=== PATIENT | female | born 1960 | race Caucasian/White ===

== ENCOUNTER 2016-07-19 10:16 | Emergency (ER) | payer MEDICARE, BC ==
[2016-07-19] MEDS ORDERED: IPRATROPIUM-ALBUTEROL 3 ML NEB INHALATION STA (11:14)
--- NOTE | 2016-07-19 11:17 | ED ---
URI HPI - General Chief Complaint: Upper Respiratory Infection Stated Complaint: Cold/fever/congestion Time Seen by Provider: 07/19/16 10:40 Source: patient, RN notes reviewed Mode of arrival: ambulatory Limitations: no limitations - History of Present Illness Initial Comments: Patient is a 56-year-old female presents to the emergency room for evaluation of fever cough and congestion. Patient states symptoms began around of last week. Patient states when taking epjr-dus-wktmpnx remedies with little relief of symptoms. Patient denies history of asthma. Patient denies smoking. Patient does admit that her smokes and he is housebound. Patient states that she has a productive cough. Patient states when she starts coughing she can't stop and feels short of breath. Patient denies any current shortness of breath or chest pain. Patient denies throat pain or ear pain. Patient states she received her influenza vaccine this year. - Related Data Home Medications Medication Instructions Recorded Confirmed Eszopiclone [Lunesta] 3 mg PO HS PRN 09/18/13 07/19/16 Fluticasone Propionate [Flonase] 1 - 2 spray EA NOSTRIL DAILY 09/18/13 07/19/16 Levothyroxine Sodium [Synthroid] 125 mcg PO DAILY 09/18/13 07/19/16 Multivitamin [Men's Multi-Vitamin] 1 tab PO DAILY 09/18/13 07/19/16 Pregabalin [Lyrica] 400 mg PO HS 09/18/13 07/19/16 Venlafaxine HCl ER [Effexor Xr] 150 mg PO HS 09/18/13 07/19/16 diphenhydrAMINE HCL [Benadryl] 25 mg PO HS 09/18/13 07/19/16 ALPRAZolam [Xanax] 0.25 mg PO HS 07/19/16 07/19/16 Dicyclomine [Bentyl] 10 mg PO TID PRN 07/19/16 07/19/16 HYDROcodone/IBUPROFEN 7.5-200 1 tab PO QID PRN 07/19/16 07/19/16 [Vicoprofen 7.5-200 mg] Loratadine [Claritin] 10 mg PO DAILY 07/19/16 07/19/16 Simvastatin [Zocor] 20 mg PO DAILY 07/19/16 07/19/16 Previous Rx's Medication Instructions Recorded Azithromycin [Zithromax Z-pack] 250 mg PO DIRECTED #6 tab 07/19/16 Allergies Allergy/AdvReac Type Severity Reaction Status Date / Time sulfamethoxazole Allergy Swelling Verified 07/19/16 10:59 [From Bactrim] trimethoprim [From Bactrim] Allergy Swelling Verified 07/19/16 10:59 Review of Systems ROS Statement: Those systems with pertinent positive or pertinent negative responses have been documented in the HPI. ROS Other: All systems not noted in ROS Statement are negative. Past Medical History Past Medical History: Fibromyalgia, Osteoarthritis (OA) Additional Past Medical History / Comment(s): hypoglycemia History of Any Multi-Drug Resistant Organisms: None Reported Past Surgical History: Section, Tonsillectomy Additional Past Surgical History / Comment(s): sinus surgery Past Anesthesia/Blood Transfusion Reactions: No Reported Reaction Past Psychological History: No Psychological Hx Reported Smoking Status: Never smoker Past Alcohol Use History: None Reported Past Drug Use History: None Reported General Exam - General Exam Comments Initial Comments: Sitting in exam room, no acute distress. Limitations: no limitations General appearance: alert, in no apparent distress Head exam: Present: atraumatic, normocephalic, normal inspection Eye exam: Present: normal appearance ENT exam: Present: normal exam, normal oropharynx, mucous membranes moist, TM's normal bilaterally, normal external ear exam Neck exam: Present: normal inspection, full ROM. Absent: tenderness, lymphadenopathy Respiratory exam: Present: wheezes (Slight wheezing). Absent: respiratory distress Cardiovascular Exam: Present: regular rate, normal rhythm, normal heart sounds Extremities exam: Present: normal inspection Back exam: Present: normal inspection Neurological exam: Present: alert, oriented X3, CN II-XII intact, normal gait Psychiatric exam: Present: normal affect, normal mood Skin exam: Present: warm, dry, intact, normal color. Absent: rash Course Vital Signs 07/19/16 07/19/16 07/19/16 10:26 11:48 12:08 Temperature 98.4 F Pulse Rate 99 100 104 H Respiratory 20 Rate Blood Pressure 130/60 O2 Sat by Pulse 96 Oximetry 07/19/16 12:29 Temperature 99.2 F Pulse Rate 90 Respiratory 18 Rate Blood Pressure 156/70 O2 Sat by Pulse 99 Oximetry Medical Decision Making - Medical Decision Making Patient is a 56-year-old female since emergency room for evaluation of cough and congestion. Lab work shows no significant findings. Patient is influenza B positive. Chest x-ray shows evidence for bronchitis. Patient is past the timeframe to take Tamiflu. Will place patient on azithromycin for bronchitis. Results discussed with patient. Patient states she understands everything that was discussed with her. Advised patient to follow-up with her primary care provider. Return parameters discussed. Case discussed with Dr. Irving. - Lab Data Result diagrams: 07/19/16 11:30 07/19/16 11:30 Lab Results 07/19/16 07/19/16 07/19/16 Range/Units 11:14 11:30 11:30 WBC 4.0 (3.8-10.6) k/uL RBC 5.01 (3.80-5.40) m/uL Hgb 14.9 (11.4-16.0) gm/dL Hct 45.7 (34.0-46.0) % MCV 91.3 (80.0-100.0) fL MCH 29.8 (25.0-35.0) pg MCHC 32.6 (31.0-37.0) g/dL RDW 12.7 (11.5-15.5) % Plt Count 192 (150-450) k/uL Neutrophils % 62 % Lymphocytes % 23 % Monocytes % 7 % Eosinophils % 4 % Basophils % 1 % Neutrophils # 2.5 (1.3-7.7) k/uL Lymphocytes # 0.9 L (1.0-4.8) k/uL Monocytes # 0.3 (0-1.0) k/uL Eosinophils # 0.2 (0-0.7) k/uL Basophils # 0.0 (0-0.2) k/uL Sodium 142 (137-145) mmol/L Potassium 4.4 (3.5-5.1) mmol/L Chloride 109 H (98-107) mmol/L Carbon Dioxide 20 L (22-30) mmol/L Anion Gap 13 mmol/L BUN 15 (7-17) mg/dL Creatinine 0.70 (0.52-1.04) mg/dL Est GFR (MDRD) Af Amer >60 (>60 ml/min/1.73 sqM) Est GFR (MDRD) Non-Af >60 (>60 ml/min/1.73 sqM) Glucose 175 H (74-99) mg/dL Calcium 8.9 (8.4-10.2) mg/dL Total Bilirubin 0.5 (0.2-1.3) mg/dL AST 45 H (14-36) U/L ALT 56 H (9-52) U/L Alkaline Phosphatase 67 (38-126) U/L Total Protein 7.0 (6.3-8.2) g/dL Albumin 4.0 (3.5-5.0) g/dL Influenza Type A RNA Not Detected (Not Detectd) Influenza Type B (PCR) Detected H (Not Detectd) - Radiology Data Radiology results: report reviewed, image reviewed Disposition Clinical Impression: Influenza B, Bronchitis Disposition: HOME SELF-CARE Condition: Good Instructions: Influenza (ED) Additional Instructions: Alternate Tylenol and Motrin as needed for fever/discomfort. Drink plenty fluids. Please follow up with primary care provider in 1-2 days for reevaluation. If any new symptom arises or symptoms worsen, return to ER as soon as possible. Prescriptions: Azithromycin [Zithromax Z-pack] 250 mg PO DIRECTED #6 tab Referrals: Chandrakant Miller MD [Primary Care Provider] - 1-2 days Time of Disposition: 12:28
--- NOTE | 2016-07-19 11:36 | XR ---
EXAMINATION TYPE: XR chest 2V DATE OF EXAM: 07/19/2016 11:31 AM HISTORY: cough. REFERENCE: Previous study dated 06/15/2011. FINDINGS: There are diffuse increased markings. Heart size is within normal limits. Pleural spaces ar e clear. IMPRESSION: DIFFUSE INCREASED MARKINGS MAY REFLECT BRONCHITIS.
[2016-07-19 11:53] LABS: Basophils % (A) 1 %; CH 30.5; CHCM 33.6; Eosinophils # (A) 0.2 k/uL (0-0.7); Eosinophils % (A) 4 %; HCT 45.7 % (34.0-46.0); HDW 2.51; HGB 14.9 gm/dL (11.4-16.0); Luc # (Auto) 0.17; Luc % (Auto) 4; Lymphocytes # (A) 0.9 k/uL (1.0-4.8); Lymphocytes % (A) 23 %; MCH 29.8 pg (25.0-35.0); MCHC 32.6 g/dL (31.0-37.0); MCV 91.3 fL (80.0-100.0); Mean Platelet Volume 7.3; Monocytes # (A) 0.3 k/uL (0-1.0); Monocytes % (A) 7 %; Neutrophils # (A) 2.5 k/uL (1.3-7.7); Neutrophils % (A) 62 %; RBC 5.01 m/uL (3.80-5.40); RDW 12.7 % (11.5-15.5)
[2016-07-19 11:59] LABS: ALT 56 U/L (9-52); AST 45 U/L (14-36); Alkaline Phosphatase 67 U/L (38-126); Anion Gap 13 mmol/L; Blood Urea Nitrogen 15 mg/dL (7-17); Calcium 8.9 mg/dL (8.4-10.2); Carbon Dioxide 20 mmol/L (22-30); Chloride 109 mmol/L (98-107); Glucose 175 mg/dL (74-99); Non-African American GFR(MDRD) >60 (>60 ml/min/1.73 sqM); Sodium 142 mmol/L (137-145); Total Bilirubin 0.5 mg/dL (0.2-1.3)
[2016-07-19 12:13] LABS: Potassium 4.4 mmol/L (3.5-5.1)
[2016-07-19 12:30] VITALS: PULSE 90; RESP 18; TEMP 99.2
[2016-07-19 13:05] VITALS: BP 148/68
== END 2016-07-19 12:50 | disposition home or self-care (01) ==
LOC: EC 10:16
DX: J10.1 Influenza due to other identified influenza virus with other respiratory manifestations (principal); J40 Bronchitis, not specified as acute or chronic; M79.7 Fibromyalgia; M19.90 Unspecified osteoarthritis, unspecified site; Z79.899 Other long term (current) drug therapy; Z88.2 Allergy status to sulfonamides; Z90.89 Acquired absence of other organs
CPT/HCPCS: 36415; 71020; 80053; 85025; 87502; 94640; 99284

== ENCOUNTER → 2017-04-10 | Outpatient (CLI) | payer MEDICARE, BC | END | disposition home or self-care (01) | LOC: LABWHC1 11:59 | PROVIDERS: ATTEND Internal Medicine Endocrinology, Diabetes & Metabolism | DX: E04.1 Nontoxic single thyroid nodule (principal) | CPT/HCPCS: 36415; 84439; 84443 ==

== ENCOUNTER → 2017-04-22 | Outpatient (CLI) | payer MEDICARE, BC ==
--- NOTE | 2017-04-22 15:32 | MR ---
EXAMINATION TYPE: MR pituitary wo/w con DATE OF EXAM: 04/22/2017 COMPARISON: Prior brain MR 08/05/2013 HISTORY: Abn xray findings, shallow and elongated sella turcica TECHNIQUE: Multiplanar, multisequence images of the brain and brainstem is performed without and with IV contras t, utilizing 12.5 mL intravenous Gadavist . FINDINGS: There is a partially empty sella present as noted on patient's prior brain MRI. There is no evident mass. Normal vascular flow voids are present. No abnormal enhancement following contrast adm inistration. The craniocervical junction appears within normal limits. The dural venous sinuses appear patent. The visualized sinuses are clear and the globes are intact. IMPRESSION: Partially empty sella. Stable exam.
== END | disposition home or self-care (01) ==
LOC: RADMRIMAIN 10:52
PROVIDERS: ATTEND Internal Medicine Endocrinology, Diabetes & Metabolism
DX: R93.0 Abnormal findings on diagnostic imaging of skull and head, not elsewhere classified (principal); E04.1 Nontoxic single thyroid nodule
CPT/HCPCS: 82565; 70553; 36415; A9581

== ENCOUNTER → 2017-12-14 | Outpatient (CLI) | payer MEDICARE, BC ==
--- NOTE | 2017-12-15 11:31 | BD ---
EXAMINATION TYPE: Axial Bone Density DATE OF EXAM: 12/14/2017 COMPARISON: NONE CLINICAL HISTORY: Height: 5 FT 6IN Weight: 273 FRAX RISK QUESTIONS: Family History (Parent hip fracture): YES History of Fracture in Adulthood: YES RISK FACTORS HISTORY OF: Postmenopausal woman: AGE 55 Poor Health: YES MEDICATIONS: Thyroid Medications: YES Which medication: SYNTHROID How Lon YEARS Additional Medications: SYNTHROID, ZOCOR, LOSARTAN, VICAPROFEN, LYRICA, FLONASE, XANAX, EFFEXOR, BENT YL, LUNESTA Additional History: EXAM MEASUREMENTS: Bone mineral densitometry was performed using the Feedback-Machine System. Bone mineral density as measured about the Lumbar spine is: ----- L1-L4(G/cm2): 1.331 T Score Values are as follows: ----- L2: 0.3 ----- L3: 1.8 ----- L4: 1.8 ----- L1-L4: 1.3 BASELINE Bone mineral density about the R hip (g/cm2): 1.072 Bone mineral density about the L hip (g/cm2): 1.034 T Score values are as follows: -----R Neck: 0.2 -----L Neck: 0.0 -----R Total: 1.2 -----L Total: 0.9 BASELINE(: IMPRESSION: No evidence for osteoporosis or osteopenia. NOTE: T-SCORE=SD OF THE YOUNG ADULT MEAN.
--- NOTE | 2017-12-18 09:55 | MM ---
Reason for exam: screening (asymptomatic). Last mammogram was performed 3 years and 11 months ago. Physical Findings: A clinical breast exam by your physician is recommended on an annual basis and results should be correlated with mammographic findings. MG 3D Screening Mammo W/Cad Bilateral CC and MLO view(s) were taken. Prior study comparison: January 03, 2014, bilateral MG screening mammo w CAD. April 18, 2012, bilateral digital screening mammo w/CAD. There are scattered fibroglandular densities. There is no discrete abnormality. No significant changes when compared with prior studies. ASSESSMENT: Negative, BI-RAD 1 RECOMMENDATION: Routine screening mammogram of both breasts in 1 year.
== END | disposition home or self-care (01) ==
LOC: RADMAMWWP 13:51
PROVIDERS: ATTEND Obstetrics & Gynecology
DX: Z12.31 Encounter for screening mammogram for malignant neoplasm of breast (principal); Z13.820 Encounter for screening for osteoporosis
CPT/HCPCS: 77063; 77067; 77080

== ENCOUNTER → 2017-12-18 | Outpatient (CLI) | payer MEDICARE, BC ==
[2017-12-18 15:12] LABS: T4, Free (Free Thyroxine) 1.1 ng/dL (0.78-2.19)
[2017-12-18 20:31] LABS: ACTH <5.00 pg/mL (0.00-45.99)
== END | disposition home or self-care (01) ==
LOC: LABWHC1 14:18
PROVIDERS: ATTEND Internal Medicine Endocrinology, Diabetes & Metabolism
DX: E04.1 Nontoxic single thyroid nodule (principal); E23.6 Other disorders of pituitary gland
CPT/HCPCS: 36415; 82024; 82533; 84146; 84439; 84443

== ENCOUNTER → 2018-05-28 | Outpatient (CLI) | payer MEDICARE, BC ==
--- NOTE | 2018-05-28 12:52 | US ---
EXAMINATION TYPE: US thyroid st tissue head/neck DATE OF EXAM: 05/28/2018 COMPARISON: Prior ultrasound February 14, 2017 CLINICAL HISTORY: E04.1 nontoxic single thyroid nodule. GLAND SIZE: Right Lobe: 3.8 X 1.2 X 1.2 cm Overall Parenchyma: homogenous Left Lobe: 3.7 X 1.1 X 0.9 cm Overall Parenchyma: homogeneous Isthmus Thickness: 0.3 cm NODULES RIGHT: # of nodules measured on right: 0 LEFT: # of nodules measured on left: 0 ISTHMUS: # of nodules measured in the isthmus: 1 1. 0.7 X 0.5 x 0.8 cm isoechoic solid nodule at the ISTHMUS with poorly defined margins; . This no dule is wider than tall and shows no intranodular vascularity. Prior size: 0.7 x 0.5 x 0.8 cm Bilateral neck scanned, no evidence of lymphadenopathy. There is homogeneous somewhat small size thyroid gland identified on current study with stable 8 mm s olid nodule in the isthmus fairly isoechoic left aspect. No new nodules are identified. IMPRESSION: As above, stable subcentimeter left isthmus solid nodule. No new greater than 1 cm solid or cystic no dules are seen.
== END | disposition home or self-care (01) ==
LOC: RADUSWWP 12:05
PROVIDERS: ATTEND Internal Medicine Endocrinology, Diabetes & Metabolism
DX: E04.1 Nontoxic single thyroid nodule (principal)
CPT/HCPCS: 76536

== ENCOUNTER → 2018-06-12 | Outpatient (CLI) | payer MEDICARE, BC | END | disposition home or self-care (01) | LOC: LABWHC1 10:10 | PROVIDERS: ATTEND Internal Medicine Endocrinology, Diabetes & Metabolism | DX: E23.6 Other disorders of pituitary gland (principal) | CPT/HCPCS: 36415; 82533; 84146 ==

== ENCOUNTER → 2018-09-06 | Outpatient (CLI) | payer MEDICARE, BC ==
[2018-09-06 13:45] LABS: HCT 44.2 % (34.0-46.0); HGB 14.2 gm/dL (11.4-16.0); MCH 29.5 pg (25.0-35.0); MCV 92.2 fL (80.0-100.0); Mean Platelet Volume 7.1; Platelet Count 282 k/uL (150-450); RDW 12.9 % (11.5-15.5); WBC 6.4 k/uL (3.8-10.6)
[2018-09-06 13:51] LABS: INR 0.9 (<1.2); Partial Thromboplastin Time 24.2 sec (22.0-30.0)
[2018-09-06 15:08] LABS: Erythrocyte Sedimentation Rate 8 mm/hr (0-20)
[2018-09-06 19:14] LABS: Hemoglobin A1C 6.6 % (4.0-6.0)
[2018-09-06 19:23] LABS: C Reactive Protein <0.4 mg/dL (0.0-0.8); Calcium 9.5 mg/dL (8.7-10.3); Chloride 106 mmol/L (96-109); Glucose 174 mg/dL (70-110); Potassium 4.1 mmol/L (3.5-5.5); Sodium 140 mmol/L (135-145)
[2018-09-06 21:37] LABS: Cardiolipin Ab IgG Interp NEGATIVE (NEGATIVE); Cardiolipin Ab IgM Interp NEGATIVE (NEGATIVE); Cardiolipin IgA Antibody 1.7 U/mL; Cardiolipin IgM Antibody 0.3 U/mL
[2018-09-07 11:33] LABS: APTT 37 Sec(s) (<43); Dilute Russell Viper Venom 37 Sec(s) (<44)
== END | disposition home or self-care (01) ==
LOC: LABWHC1 12:42
PROVIDERS: ATTEND Psychiatry & Neurology Neurology
DX: E11.69 Type 2 diabetes mellitus with other specified complication (principal); M12.9 Arthropathy, unspecified; R53.83 Other fatigue; E87.8 Other disorders of electrolyte and fluid balance, not elsewhere classified; R20.0 Anesthesia of skin; M79.10 Myalgia, unspecified site; R93.89 Abnormal findings on diagnostic imaging of other specified body structures; E56.9 Vitamin deficiency, unspecified; I67.9 Cerebrovascular disease, unspecified
CPT/HCPCS: 36415; 80048; 82306; 82607; 83036; 83090; 85027; 85610; 85613; 85652; 85730; 86140; 86147

== ENCOUNTER → 2018-09-11 | Outpatient (CLI) | payer MEDICARE, BC ==
--- NOTE | 2018-09-11 14:48 | MR ---
EXAMINATION TYPE: MR brain wo/w con DATE OF EXAM: 09/11/2018 COMPARISON: MRI of the pituitary dated 04/22/2017 MRI of the brain dated 08/05/2013 HISTORY: Prior abnormal MRI TECHNIQUE: Multiplanar, multisequence images of the brain and brainstem is performed without and with IV contras t, utilizing 12 mL intravenous Gadavist . FINDINGS: Diffusion weighted images demonstrate no evidence of a recent infarct or other diffusion ab normality. There is no extra-axial fluid collection. As seen on the prior exam there are multiple T2 /FLAIR hyperintense subcortical and periventricular foci of nonspecific white matter change. These ap pear to continue to increase in comparison to the prior exam in both size and number. The most conflu ent left lesion measures 1.5 cm in anterior posterior dimension and the posterior left frontal lobe a nd on the right measures up to 7 mm in the subcortical right frontal lobe. There are approximately 21 foci on the right supratentorial white matter and 19 on the left supratentorial white matter. Puncta te foci are also not seen within the raymundo. No cerebellar foci identified. The ventricular system and cisternal spaces are normal in size and appearance. The brain volume is age appropriate. Again there is note of a partially empty sella turcica. 3 mm nonenhancing pineal gland cyst is incide ntally noted. Remaining midline structures are unremarkable. Bone marrow signal is within normal limi ts. The craniocervical junction appears within normal limits.The dural venous sinuses appear patent. Right maxillary sinus is slightly hypoplastic with trace mucosal thickening in the ethmoid sinuses. T he remaining visualized sinuses are clear and the globes are intact. There is slight increased amount of subarachnoid paravertebral fluid and undulation of the optic nerves. Correlation with ophthalmolo gic exam could be performed. Additionally given a partially empty sella turcica increased intracrania l pressure is possible and could be evaluated with lumbar puncture with opening pressure if there is further clinical concern. Post contrast images demonstrate no abnormal enhancement. IMPRESSION: 1. Continued increase in both size and number of the nonspecific white matter change that may be on t he basis of chronic microangiopathy although consideration for demyelinating disease should be given. New punctate pontine nonenhancing foci of white matter change are seen. 2. Partially empty sella turcica is again noted with slight increased subarachnoid fluid surrounding the optic nerves. Correlation with ophthalmologic exam is recommended to exclude papilledema. If ther e is further suspicion for increased intracranial pressure given these findings or pseudotumor cerebr i, lumbar puncture with opening pressure could be performed.
== END | disposition home or self-care (01) ==
LOC: RADMRIMAIN 12:20
PROVIDERS: ATTEND Psychiatry & Neurology Neurology
DX: R90.89 Other abnormal findings on diagnostic imaging of central nervous system (principal)
CPT/HCPCS: 70553; A9577

== ENCOUNTER → 2019-01-14 | Outpatient (CLI) | payer MEDICARE, BC ==
[2019-01-14 19:59] LABS: ACTH 6.48 pg/mL (0.00-45.99)
== END ==
LOC: LABWHC1 10:30
PROVIDERS: ATTEND Internal Medicine Endocrinology, Diabetes & Metabolism
DX: E03.8 Other specified hypothyroidism (principal); E23.6 Other disorders of pituitary gland
CPT/HCPCS: 36415; 82024; 82533; 84146

== ENCOUNTER → 2019-06-27 | Outpatient (CLI) | payer MEDICARE, BC ==
--- NOTE | 2019-06-27 10:18 | FL ---
EXAMINATION TYPE: FL UGI air DATE OF EXAM: 06/27/2019 COMPARISON: NONE HISTORY: Nausea and epigastric pain TECHNIQUE: A double contrast UGI study is performed. 46 fluoroscopic images were saved and 1 minute and 40 seconds of fluoroscopy time was utilized. FINDINGS: The esophagus shows normal motility and emptying into the stomach. No evidence of hiatal hernia or s tricture noted. The stomach shows a filling defect in the gastric fundus adjacent to the gastroesophageal junction fo r seen on image 14/46 and better seen on subsequent images such as image 29 and 30 of 46. Mild degree gastroesophageal reflux was seen during real time performance of this study. The duodenal bulb, sweep, and proximal small bowel loops are unremarkable. IMPRESSION: 1. Ovoid well-circumscribed smoothly marginated filling defect/mass in the gastric fundus near the ga stroesophageal junction. Endoscopy is recommended for improved visualization and potential biopsy. 2. Mild degree gastroesophageal reflux in the supine position.
== END | disposition home or self-care (01) ==
LOC: RADUSWWP 08:44
PROVIDERS: ATTEND Family Medicine
DX: K21.9 Gastro-esophageal reflux disease without esophagitis (principal)
CPT/HCPCS: 74246

== ENCOUNTER → 2019-07-11 | Outpatient (CLI) | payer MEDICARE, BC ==
--- NOTE | 2019-07-11 14:48 | CT ---
EXAMINATION TYPE: CT abdomen pelvis w con DATE OF EXAM: 07/11/2019 HISTORY: Nausea, Epigastric pain CT DLP: 1645.60mGycm Automated Exposure Control for Dose Reduction was Utilized. CONTRAST: CT scan of the abdomen and pelvis is performed with IV Contrast, patient injected with 100 ml mL of I sovue 300. COMPARISON: None. FINDINGS: LUNG BASES: Minimal bibasilar subsegmental atelectasis. LIVER/GB: Hepatic parenchyma is diffusely hypoattenuated in comparison to that of the spleen, most co mmonly seen in hepatic steatosis. This finding limits evaluation for hepatic masses. No gross evidenc e of hepatic mass is seen. No intrahepatic biliary ductal dilatation. No cholelithiasis PANCREAS: No significant abnormality is seen. SPLEEN: No significant abnormality is seen. ADRENALS: Indeterminate 1.2 cm left adrenal gland nodule with average Hounsfield unit of 29. Right ad renal gland is unremarkable. KIDNEYS: No significant abnormality is seen. BOWEL: Masslike thickening of the lesser curvature the stomach at the gastroesophageal junction. This measures 2.8 cm and is marked on image 20. Oral contrast does not progress into the colon and theref ore there is limited evaluation of the colon. Mild degree colonic fecal stasis. No dilated large deepa l. Mildly dilated focal loop of small bowel in the left mid abdomen likely relates to ileus. UTERUS/ADNEXA: No gross abnormality seen. LYMPH NODES: No greater than 1cm abdominal or pelvic lymph nodes are appreciated. OSSEOUS STRUCTURES: Mild multilevel degenerative change of the spine. Few scattered punctate scleroti c foci, likely bone islands. IMPRESSION: 1. Masslike density measuring 2.8 cm of the gastric fundus near the gastroesophageal junction. Direct visualization is recommended. 2. Indeterminate 1.2 cm left adrenal gland lesion that does not meet criteria for a benign adenoma at this time. More definitive characterization with enhanced abdominal MRI or three-phase CT to calcula te washout is recommended. 3. Hepatic steatosis. 4. Mildly dilated loop of small bowel in the left mid abdomen is likely on the basis of ileus.
== END | disposition home or self-care (01) ==
LOC: RADCTMAIN 12:10
PROVIDERS: ATTEND Family Medicine
DX: K76.0 Fatty (change of) liver, not elsewhere classified (principal); K63.89 Other specified diseases of intestine; R19.09 Other intra-abdominal and pelvic swelling, mass and lump; R10.13 Epigastric pain; R11.0 Nausea
CPT/HCPCS: 82565; 84520; 74177; 36415; Q9967

== ENCOUNTER → 2019-09-13 | Outpatient (CLI) | payer MEDICARE, BC | END | disposition home or self-care (01) | LOC: LABWHC1 11:56 | PROVIDERS: ATTEND Internal Medicine | DX: Z11.59 Encounter for screening for other viral diseases (principal) | CPT/HCPCS: 87635 ==

== ENCOUNTER 2019-09-17 06:57 | Day surgery (SDC) | payer MEDICARE, BC ==
[2019-09-13 09:35] VITALS: BMI 41.9
[2019-09-17 07:28] LABS: Glucose,Whole Blood 131 mg/dL (75-99)
[2019-09-17 07:29] VITALS: TEMP 97.8
[2019-09-17] MEDS ORDERED: LIDOCAINE 1% (10MG/ML) FOR IV START INTRADERMA ONE (07:29)
[2019-09-17] MEDS ORDERED: LACTATED RINGERS 1,000 ML IV ONE (07:30)
[2019-09-17] MEDS ORDERED: MIDAZOLAM 2 MG/2 ML VIAL ONE (07:40)
[2019-09-17] MEDS ORDERED: LIDOCAINE 1% INJ 10MG/ML (20 ML MDV) ONE (07:40)
[2019-09-17] MEDS ORDERED: KETAMINE 10 MG/ML 20 ML VIAL ONE (07:40)
[2019-09-17] MEDS ORDERED: PROPOFOL 10 MG/ML 20 ML VIAL IV ONE (07:40)
--- NOTE | 2019-09-17 08:10 | P.PCN ---
Date of Procedure: 09/17/19 Description of Procedure: BRIEF HISTORY: Patient is a 59-year-old female presenting for evaluation of bloating and abnormal computed tomography scan of the abdomen. Patient has had symptoms of bloating and distention. She had computed tomography scan performed of the abdomen and small bowel follow-through which were significant for a masslike area in the fundus just distal to the GE junction measuring approximately 2.[address] also commented on associated atelectasis. She denies any change in bowel habits or dysphagia or odynophagia. PROCEDURE PERFORMED: Esophagogastroduodenoscopy with biopsy. PREOPERATIVE DIAGNOSIS: Bloating, abnormal computed tomography scan abdomen. ESTIMATED BLOOD LOSS: Minimal. IV sedation per anesthesia. PROCEDURE: After informed consent was obtained, the patient was brought into the endoscopy unit. IV sedation was administered by Anesthesia under continuous monitoring. Initially the Olympus GIF-190 video endoscope was inserted into the mouth. Esophagus intubated without any difficulty. It was gradually advanced into the stomach and duodenum and carefully examined. The bulb and the second part of the duodenum appeared normal, with biopsies taken. The scope at this time was withdrawn to the stomach, adequately insufflated with air, and upon careful examination, mucosa of the antrum, body, cardia and the fundus appeared normal, except for some mild scattered erythema in the antrum and body suggestive of mild gastritis with biopsies taken. There was also an abnormal thickened fold/masslike area in the fundus just distal to the GE junction measuring approximately 3 cm which was biopsied the area did not look malignant in nature however was abnormal. The scope was then withdrawn into the esophagus. The GE junction was located at 37 cm from the incisors. The esophagus appeared normal. There were no erosions or ulcerations seen and the patient tolerated the procedure well. IMPRESSION: 1. Abnormally thickened fold/masslike area in the fundus just distal to the GE junction measuring approximately 3 cm which was biopsied. 2. Mild gastritis antrum body, biopsied. 3. Duodenal biopsies. RECOMMENDATIONS: The findings of this examination were discussed with the patient. Await pathology from biopsies would recommend patient follow up in clinic for results of biopsy next week. Pending pathology patient may require referral to tertiary center for endoscopic ultrasound for further evaluation. Dietary modifications discussed with the patient given symptoms of bloating and distention.
[2019-09-17 08:21] VITALS: RESP 16
[2019-09-17 08:29] VITALS: BP 119/58; PULSE 60
== END 2019-09-17 09:00 | disposition home or self-care (01) ==
LOC: ORWHC2ENDO 06:57
PROVIDERS: ATTEND Internal Medicine
DX: K29.80 Duodenitis without bleeding (principal); K29.50 Unspecified chronic gastritis without bleeding; I10 Essential (primary) hypertension; E11.9 Type 2 diabetes mellitus without complications; E66.01 Morbid (severe) obesity due to excess calories; Z68.41 Body mass index [BMI] 40.0-44.9, adult; Z90.710 Acquired absence of both cervix and uterus; K31.9 Disease of stomach and duodenum, unspecified; Z98.890 Other specified postprocedural states; Z79.84 Long term (current) use of oral hypoglycemic drugs; Z79.899 Other long term (current) drug therapy; Z88.2 Allergy status to sulfonamides
CPT/HCPCS: 88305; 43239; J2250; J2001; J2704

== ENCOUNTER → 2019-11-06 | Outpatient (CLI) | payer MEDICARE, BC ==
--- NOTE | 2019-11-06 18:47 | MR ---
EXAMINATION TYPE: MR abdomen wo/w con DATE OF EXAM: 11/06/2019 COMPARISON: CT 07/11/2019 HISTORY: Adrenal Lesion / Stomach Mass CONTRAST: Standard multiplanar, multisequence MRI departmental protocol utilizing 12 mL intravenous Gadavist ga dolinium contrast. FINDINGS: Fat-containing left adrenal nodule noted measuring 1.5 cm compatible with adrenal adenoma. The right adrenal gland is unremarkable without nodule or thickening. Changes of fatty liver. Multiple small gallstones are noted. No wall thickening seen. Common bile sherrill t is of normal caliber. Soft tissue mass at the level of the lesser gastric curvature near the GE junction requires direct vi sualization to exclude neoplasm. Spleen pancreas and kidneys are within normal limits. Abdominal aorta as visualized is of normal danyel bobbi. IMPRESSION: 1.Soft tissue mass at the level of the lesser gastric curvature near the GE junction requires direct visualization to exclude neoplasm. 2. Left adrenal adenoma. 3. Cholelithiasis. 4. Fatty liver.
== END | disposition home or self-care (01) ==
LOC: RADMRIMAIN 11:05
PROVIDERS: ATTEND Family Medicine
DX: D35.02 Benign neoplasm of left adrenal gland (principal); R19.09 Other intra-abdominal and pelvic swelling, mass and lump; K80.20 Calculus of gallbladder without cholecystitis without obstruction; K76.0 Fatty (change of) liver, not elsewhere classified
CPT/HCPCS: 74183; A9585

== ENCOUNTER → 2020-07-01 | Outpatient (CLI) | payer MEDICARE, BC ==
[~2020-07-01] MED LIST: REGADENOSON 0.4 MG/5 ML SYRINGE IV PRN
--- NOTE | 2020-07-01 12:00 | NM ---
EXAMINATION TYPE: NM stress lexiscan cardiolite DATE OF EXAM: 07/01/2020 COMPARISON: Prior exam dated 05/04/2012 HISTORY: Abnormal EKG, shortness of breath, diabetes TECHNIQUE: After the intravenous administration of 9.5 mCi Tc 99m Sestamibi - Cardiolite resting SPE CT images acquired 45 minutes post injection. The patient received 0.4mg Lexiscan, 24.3 mCi Tc 99m Sestamibi - Stress images obtained [address] injection FINDINGS: Review of stress and rest SPECT images demonstrates some decreased uptake along the lateral wall, ant erior wall, anteroseptal region greater on stress than on rest images extending towards the apex wher e there is decreased uptake on stress as compared to rest images. Gated analysis shows normal wall m otion with an estimated left ventricular ejection fraction of 61 %. IMPRESSION: Pharmacologically induced left ventricular myocardial ischemia. Results relayed telephoni alexandr to office of Dr. Marrero at the time of interpretation at exam.
--- NOTE | 2020-07-01 13:53 | EST ---
EXERCISE STRESS AGE: 60 SEX: Female HT: 5'6" WT: 586 lbs. PROTOCOL: Lexiscan Cardiolite STAGE: N/A DURATION OF EXERCISE: N/A HEART RATE REST: 68 BLOOD PRESSURE REST: 137/68 MAXIMUM HEART RATE ACHIEVED: 92 MAXIMUM BLOOD PRESSURE: 165/84 85% MPHR: 137 100% MPHR: 161 METS: N/A INDICATIONS: Chest pain CLINICAL INFORMATION: Baseline rhythm sinus mechanism, rate 68, normal axis and intervals, poor R progression. Baseline blood pressure 137/68 mmHg. Patient received injection of Lexiscan. Electrocardiograph monitoring revealed no evidence of diagnostic ischemic ST deviation. Cardiolite was injected per protocol. CONCLUSION: 1. Nondiagnostic electrocardiograph stress testing. 2. Nuclear images will be reported separately. MMODL / IJN: [id number] /
== END | disposition home or self-care (01) ==
LOC: RADNMMAIN 07:58
PROVIDERS: ATTEND Family Medicine
DX: R06.02 Shortness of breath (principal); R94.31 Abnormal electrocardiogram [ECG] [EKG]; E11.9 Type 2 diabetes mellitus without complications
CPT/HCPCS: 93017; 78452; A9500; J2785

== ENCOUNTER → 2020-07-14 | Outpatient (CLI) | payer MEDICARE, BC ==
[2020-07-14 11:56] LABS: HCT 40.5 % (34.0-46.0); MCH 31.6 pg (25.0-35.0); MCHC 34.6 g/dL (31.0-37.0); MCV 91.3 fL (80.0-100.0); Mean Platelet Volume 7.4; Platelet Count 263 k/uL (150-450); RBC 4.43 m/uL (3.80-5.40); RDW 12.9 % (11.5-15.5); WBC 9.4 k/uL (3.8-10.6)
[2020-07-14 12:06] LABS: African American GFR (CKD) >90 (>60 ml/min/1.73 sqM); Anion Gap 7 mmol/L; Blood Urea Nitrogen 20 mg/dL (7-17); Carbon Dioxide 27 mmol/L (22-30); Chloride 103 mmol/L (98-107); Non-African American GFR(CKD) 88 (>60 ml/min/1.73 sqM); Potassium 4.1 mmol/L (3.5-5.1); Sodium 137 mmol/L (137-145)
== END | disposition home or self-care (01) ==
LOC: LABPAT 11:28
PROVIDERS: ATTEND Internal Medicine
DX: Z01.812 Encounter for preprocedural laboratory examination (principal); R94.39 Abnormal result of other cardiovascular function study
CPT/HCPCS: 80051; 82565; 84520; 85027

== ENCOUNTER 2020-07-20 10:57 | Day surgery (SDC) | payer MEDICARE, BC ==
[2020-07-16 15:16] VITALS: BMI 41.1
[~2020-07-20 10:57] MED LIST changes: +ALPRAZolam 0.25 MG TAB PO PRN; +ALPRAZolam 0.5 MG TAB PO PRN; +ASPIRIN 325 MG TAB PO STA; +ATORVASTATIN 80 MG TAB PO STA; +HEPARIN SODIUM,PORCINE 10,000 UNIT in SODIUM CHLORIDE 0.9% 1,000 ML IRRIGATION PRN; +HEPARIN SODIUM,PORCINE 2,500 UNIT in SODIUM CHLORIDE 0.9% 250 ML IRRIGATION PRN; +NITROGLYCERIN SL TABS 0.4 MG TAB SUBLINGUAL PRN; -REGADENOSON 0.4 MG/5 ML SYRINGE IV PRN; +SODIUM CHLORIDE 0.9% 1,000 ML in EMPTY BAG 1 BAG IV ONE
[2020-07-20 11:34] LABS: Glucose,Whole Blood 167 mg/dL (75-99)
[2020-07-20] MEDS ORDERED: SODIUM CHLORIDE 0.9% 1,000 ML IV ONE (11:35)
[2020-07-20] MEDS ORDERED: LIDOCAINE 1% INJ 10MG/ML (20 ML MDV) ONE (12:03)
[2020-07-20] MEDS ORDERED: VERAPAMIL 2.5 MG/ML 2 ML AMP ONE (12:03)
[2020-07-20] MEDS ORDERED: fentaNYL (PF) 50 MCG/ML 2 ML AMP ONE (12:12)
[2020-07-20] MEDS ORDERED: MIDAZOLAM 2 MG/2 ML VIAL IVP ONE (12:13)
[2020-07-20] MEDS ORDERED: fentaNYL (PF) 50 MCG/ML 2 ML AMP IVP ONE (12:13)
[2020-07-20] MEDS ORDERED: LIDOCAINE 1% INJ 10MG/ML (20 ML MDV) SQ ONE (12:14)
[2020-07-20] MEDS ORDERED: IV FLUID CONTINUATION 900 ML IV ONE (12:17)
[2020-07-20] MEDS ORDERED: VERAPAMIL SYRINGE (5 MG/10 ML) INTRAARTER ONE (12:17)
[2020-07-20] MEDS ORDERED: HEPARIN SODIUM 1,000 UN/ML (10ML VL) IV ONE ×2 (12:21→12:30)
[2020-07-20] MEDS ORDERED: HEPARIN SODIUM 1,000 UN/ML (10ML VL) ONE (12:33)
[2020-07-20] MEDS ORDERED: IOPAMIDOL-370 125ML BTL INJ ONE (12:41)
[2020-07-20] MEDS ORDERED: RX INFO: IV CONTRAST WAS GIVEN 1 EACH MISC MISCELLANE PRN (12:58)
--- NOTE | 2020-07-20 12:58 | P.CARDCATH ---
Description of Procedure: PROCEDURES PERFORMED: Left heart catheterization, bilateral coronary angiography, iFR INDICATION: Abnormal stress test HISTORY: She is a pleasant 60-year-old female with history of fibromyalgia, hypertension, hyperlipidemia, diabetes mellitus type 2 and obesity who presents for elective heart catheterization. She was seen by my partner, Dr Ellis for abnormal EKG with initial concern of old [place]. She did have a stress test with anterior ischemia. She has been having atypical symptoms of chest pain, upset stomach as well as neck pain not necessarily associated with any exertion however she is not overly active. Therefore recommendations were made regarding heart catheterization. CONSENT:I have discussed the risks, benefits and alternative therapies for the above-mentioned procedure and for both sedation/analgesia as well as necessary blood product administration, if indicated, as they pertain to this patient. The patient has indicated understanding and acceptance of the risks and procedures discussed. PROCEDURE: After the risks, benefits and alternatives of the above mentioned procedure explained in detail with the patient, informed consent was obtained. Patient was taken to the catheterization lab and prepped and draped in usual fashion. 1% lidocaine was used to anesthetize the right radial artery. A 6- [place] sheath was placed in the right radial artery using modified Seldinger technique. Left coronary angiography was performed with a 5-[place] JL 3.5 catheter and right coronary angiography was performed with a 5-[place] JR5 catheter in various views. A 5-[place] FR5 catheter was inserted into the left ventricle and pressure measurements were obtained. The decision was made to perform iFR of the circumflex. A 6 Fr CLS 3.5 guide was used to engage the left main. A 0.014 pressure wire was introduced in the left main and normalized. The wire was advanced 2 cm distal to the lesion and iFR measurements were obtained at 0.93 which was negative. The guide catheter was then removed. The right radial sheath was removed and a TR band was placed with hemostasis achieved. The patient tolerated the procedure well. Patient was transported back to the post catheterization holding area in stable condition. Conscious Sedation: Patient was monitored under the direct supervision of vision of myself for conscious sedation using Versed and fentanyl for a total duration of 31 minutes HEMODYNAMICS: Aorta: 142/78 LV: 140/2 LVEDP 20 SELECTIVE CORONARY ARTERIOGRAPHY: LEFT MAIN: The left main is a large caliber vessel which trifurcates into the LAD, ramus and circumflex. There is no significant stenosis. LEFT ANTERIOR DESCENDING CORONARY ARTERY: LAD is a large caliber vessel which wraps around to the apex. There is mild proximal 30% LAD stenosis there is diffuse mid LAD 30% stenosis diagonal 1 is small caliber without significant stenosis. RAMUS INTERMEDIUS: Ramus is a small caliber vessel which has a mid 50% stenosis LEFT CIRCUMFLEX CORONARY ARTERY: Left circumflex is a large caliber vessel with a mid 60-70% stenosis and gives off a moderate caliber OM1. iFR normal at 0.93. RIGHT CORONARY ARTERY: The right coronary artery is a moderate caliber vessel which gives off a PDA and PLV branch and is the dominant vessel. There is a mid RCA 40% stenosis. FINAL IMPRESSION: 1. Mild to moderate coronary artery disease as described above including small caliber ramus 50%, mid RCA 40%, LAD 30% and circumflex 60-70% stenosis. 2. Normal iFR of circumflex 60-70% stenosis 3. Mildly elevated left-sided filling pressures PLAN: 1. Aggressive risk factor modification per most recent ACC/AHA guidelines. 2. Follow-up in the office in 1-2 weeks. 3. iFR of circumflex normal and therefore would recommend medical therapy and no intervention especially given reported ALLERGY to aspirin and atypical symptoms with stress test showing anterior ischemia.
[2020-07-20 15:43] VITALS: RESP 16
[2020-07-20 17:23] VITALS: BP 143/69; PULSE 69
== END 2020-07-20 17:28 | disposition home or self-care (01) ==
LOC: CATHCVL 10:57
PROVIDERS: ATTEND Internal Medicine
DX: I25.10 Atherosclerotic heart disease of native coronary artery without angina pectoris (principal); I10 Essential (primary) hypertension; E11.9 Type 2 diabetes mellitus without complications; E78.2 Mixed hyperlipidemia; E66.9 Obesity, unspecified; M79.7 Fibromyalgia; G47.33 Obstructive sleep apnea (adult) (pediatric); Z79.84 Long term (current) use of oral hypoglycemic drugs; Z82.49 Family history of ischemic heart disease and other diseases of the circulatory system; Z79.899 Other long term (current) drug therapy; R53.82 Chronic fatigue, unspecified; Z88.8 Allergy status to other drugs, medicaments and biological substances; Z88.2 Allergy status to sulfonamides
CPT/HCPCS: 93571; 93458; C1887 ×2; C1769; C1894; J2250; J2001; J3010; J1644; Q9967

== ENCOUNTER → 2020-09-03 | Outpatient (CLI) | payer MEDICARE, BC ==
--- NOTE | 2020-09-03 16:11 | XR ---
EXAMINATION TYPE: XR chest 2V DATE OF EXAM: 09/03/2020 COMPARISON: 07/19/2016 HISTORY: Cough TECHNIQUE: Frontal and lateral views of the chest are obtained. FINDINGS: There is no focal air space opacity, pleural effusion, or pneumothorax seen. The cardiac silhouette size is within normal limits. The osseous structures are intact. IMPRESSION: No acute cardiopulmonary process.
== END | disposition home or self-care (01) ==
LOC: RADXRMAIN 15:36
PROVIDERS: ATTEND Family Medicine
DX: R05 Cough (principal)
CPT/HCPCS: 71046

== ENCOUNTER 2020-11-12 06:52 | Day surgery (SDC) | payer MEDICARE, BC ==
[2020-11-11 10:12] VITALS: BMI 41.9
[~2020-11-12 06:52] MED LIST changes: -ALPRAZolam 0.25 MG TAB PO PRN; -ALPRAZolam 0.5 MG TAB PO PRN; -ASPIRIN 325 MG TAB PO STA; -ATORVASTATIN 80 MG TAB PO STA; -HEPARIN SODIUM,PORCINE 10,000 UNIT in SODIUM CHLORIDE 0.9% 1,000 ML IRRIGATION PRN; -HEPARIN SODIUM,PORCINE 2,500 UNIT in SODIUM CHLORIDE 0.9% 250 ML IRRIGATION PRN; +LACTATED RINGERS 1,000 ML IV SCH; -NITROGLYCERIN SL TABS 0.4 MG TAB SUBLINGUAL PRN; -SODIUM CHLORIDE 0.9% 1,000 ML in EMPTY BAG 1 BAG IV ONE
[2020-11-12 07:12] VITALS: TEMP 97.8
[2020-11-12] MEDS ORDERED: LACTATED RINGERS 1,000 ML IV ONE (07:13)
[2020-11-12 07:22] LABS: Glucose,Whole Blood 146 mg/dL (75-99)
[2020-11-12] MEDS ORDERED: PROPOFOL 10 MG/ML 20 ML VIAL IV ONE (07:52)
[2020-11-12] MEDS ORDERED: LIDOCAINE 1% INJ 10MG/ML (20 ML MDV) ONE (07:52)
--- NOTE | 2020-11-12 07:56 | P.GSHP ---
History of Present Illness H&P Date: 11/12/20 Chief Complaint: Screening colonoscopy The fifth female who presents today for screening colonoscopy. She denies a significant GI complaints Past Medical History Past Medical History: Coronary Artery Disease (CAD), Diabetes Mellitus, Fibromyalgia, GERD/Reflux, Hyperlipidemia, Osteoarthritis (OA), Sleep Apnea/CPAP/BIPAP, Thyroid Disorder Additional Past Medical History / Comment(s): hypoglycemia. has cpap History of Any Multi-Drug Resistant Organisms: None Reported Past Surgical History: Section, Tonsillectomy Additional Past Surgical History / Comment(s): sinus surgery Past Anesthesia/Blood Transfusion Reactions: No Reported Reaction Additional Past Anesthesia/Blood Transfusion Reaction / Comment(s): "dad had hard time coming out of anesthesia" Smoking Status: Never smoker Medications and Allergies Home Medications Medication Instructions Recorded Confirmed Type Eszopiclone [Lunesta] 3 mg PO HS PRN 09/18/13 11/11/20 History Fluticasone Propionate [Flonase] 1 - 2 spray EA NOSTRIL DAILY PRN 09/18/13 11/11/20 History Levothyroxine Sodium [Synthroid] 125 mcg PO DAILY 09/18/13 11/11/20 History Pregabalin [Lyrica] 400 mg PO HS 09/18/13 11/11/20 History Venlafaxine HCl ER [Effexor Xr] 150 mg PO HS 09/18/13 11/11/20 History Dicyclomine [Bentyl] 10 mg PO TID PRN 07/19/16 11/11/20 History Cholecalciferol (Vitamin D3) 125 mcg PO DAILY 09/13/19 11/11/20 History [Vitamin D3] Losartan/Hydrochlorothiazide 1 tab PO DAILY 09/13/19 11/11/20 History [Losartan-Hctz 50-12.5 mg Tab] Montelukast [Singulair] 10 mg PO DAILY 09/13/19 11/11/20 History [place]-3 Fatty Acids/Fish Oil [Fish 1 each PO DAILY 09/13/19 11/11/20 History Oil 1,000 mg Softgel] metFORMIN HCL [Glucophage] 500 mg PO TID 09/13/19 11/11/20 History Atorvastatin Calcium [Lipitor] 20 mg PO HS 07/16/20 11/11/20 History Ezetimibe [Zetia] 10 mg PO DAILY 07/16/20 11/11/20 History Melatonin 10 mg PO HS 07/16/20 11/11/20 History Metoprolol Succinate (ER) [Toprol 25 mg PO HS 07/16/20 11/11/20 History Xl] Cetirizine HCl [Zyrtec] 10 mg PO DAILY 11/11/20 11/11/20 History HYDROcodone/APAP 7.5-325MG [[place] 1 tab PO TID 11/11/20 11/11/20 History 7.5-325] Ibuprofen [Motrin] 400 mg PO DAILY PRN 11/11/20 11/11/20 History Allergies Allergy/AdvReac Type Severity Reaction Status Date / Time sulfamethoxazole Allergy Swelling Verified 11/11/20 09:59 [From Bactrim] trimethoprim [From Bactrim] Allergy Swelling Verified 11/11/20 09:59 aspirin AdvReac "upsets Verified 11/11/20 09:59 stomach" Surgical - Exam Vital Signs Temp Pulse Resp BP Pulse Ox 97.8 F 78 18 171/79 98 11/12/20 07:11 11/12/20 07:11 11/12/20 07:11 11/12/20 07:11 11/12/20 07:11 - General well developed, well nourished, no distress - Eyes PERRL - ENT normal pinna - Neck no masses - Respiratory normal expansion - Cardiovascular Rhythm: regular - Abdomen Abdomen: soft, non tender Results - Labs Abnormal Lab Results - Last 24 Hours (Table) 11/12/20 Range/Units 07:20 POC Glucose (mg/dL) 146 H (75-99) mg/dL Assessment and Plan Assessment: We will perform screening colonoscopy
--- NOTE | 2020-11-12 08:10 | P.OP ---
Date of Procedure: 11/12/20 Preoperative Diagnosis: Screening colonoscopy Postoperative Diagnosis: Mild diverticulosis Procedure(s) Performed: Colonoscopy Anesthesia: MAC Surgeon: José Richter Pathology: none sent Condition: stable Disposition: PACU Description of Procedure: The patient's placed on the endoscopy table in the lateral position. She received IV sedation. Digital rectal exam was performed. This revealed no abnormalities. Flexible colonoscope was then placed patient anus and passed throughout the entire colon. The ileocecal valve was visually is. The cecum, ascending and transverse colon appeared normal. In the descending; there is mild diverticular changes. Scope was then brought back the rectum and this appeared normal. Scope was withdrawn for patient.
[2020-11-12 08:23] VITALS: PULSE 66
[2020-11-12 08:30] VITALS: BP 149/83; RESP 16
== END 2020-11-12 09:09 | disposition home or self-care (01) ==
LOC: ORWHC2ENDO 06:52
PROVIDERS: ATTEND Surgery
DX: Z12.11 Encounter for screening for malignant neoplasm of colon (principal); K57.30 Diverticulosis of large intestine without perforation or abscess without bleeding; I25.10 Atherosclerotic heart disease of native coronary artery without angina pectoris; E11.9 Type 2 diabetes mellitus without complications; K21.9 Gastro-esophageal reflux disease without esophagitis; M79.7 Fibromyalgia; E78.5 Hyperlipidemia, unspecified; M19.90 Unspecified osteoarthritis, unspecified site; G47.30 Sleep apnea, unspecified; E07.9 Disorder of thyroid, unspecified; Z98.891 History of uterine scar from previous surgery; Z90.89 Acquired absence of other organs; Z98.890 Other specified postprocedural states; Z79.84 Long term (current) use of oral hypoglycemic drugs; Z79.890 Hormone replacement therapy; Z79.891 Long term (current) use of opiate analgesic; Z79.899 Other long term (current) drug therapy; Z88.6 Allergy status to analgesic agent; Z88.2 Allergy status to sulfonamides
CPT/HCPCS: J2001; J2704; G0121; 45378

== ENCOUNTER → 2021-03-02 | Outpatient (CLI) | payer MEDICARE, BC ==
--- NOTE | 2021-03-02 16:09 | XR ---
EXAMINATION TYPE: XR chest 2V DATE OF EXAM: 03/02/2021 COMPARISON: Chest x-ray 09/03/2020 HISTORY: Upper respiratory infection, fatigue and weakness TECHNIQUE: Frontal and lateral views of the chest are obtained. FINDINGS: There is no focal air space opacity, pleural effusion, or pneumothorax seen. The cardiac silhouette size is within normal limits. Patient is rotated. The osseous structures are intact. IMPRESSION: No acute cardiopulmonary process.
== END | disposition home or self-care (01) ==
LOC: RADXRMAIN 15:37
PROVIDERS: ATTEND Family Medicine
DX: J06.9 Acute upper respiratory infection, unspecified (principal)
CPT/HCPCS: 71046

== ENCOUNTER → 2021-03-02 | Outpatient (CLI) | payer MEDICARE, BC | END | disposition home or self-care (01) | LOC: LABWHC1 15:19 | PROVIDERS: ATTEND Family Medicine | DX: R50.9 Fever, unspecified (principal); R53.1 Weakness | CPT/HCPCS: 87040; 87502; 36415; U0003; C9803 ==

== ENCOUNTER → 2021-06-16 | Outpatient (CLI) | payer MEDICARE, BC ==
--- NOTE | 2021-06-16 18:05 | CONS ---
CONSULTATION DATE OF SERVICE: 06/16/2021 This 61-year-old lady has been evaluated in [facility] for evaluation for obstructive sleep apnea-hypopnea syndrome. HISTORY OF PRESENT ILLNESS/SLEEP-WAKE EVALUATION: The patient has had a history of obstructive sleep apnea for more than 12 years. She continues to use her CPAP equipment every night, but recently her CPAP equipment started to develop some problems. According to the patient, she has a unit which is more than 10 years old. Her sleep schedule is from midnight until 8 or 9:30 a.m. She does have problems with falling asleep, although no TV in bedroom. She usually sleeps on the side position. She wakes up from sleep about 6 times, with 2 episodes of nocturia. Positive history of restless legs symptoms, sometimes jumping during sleep, according to the patient, which may wake her up from sleep. Questionable history of hypnagogic hallucinations. No history of sleep paralysis or cataplexy. In the morning the patient wakes up tired, has problems with memory and concentration. She usually does not take any naps. Free[place] Sleepiness Scale is 1. PAST MEDICAL HISTORY: Positive for hypertension, fibromyalgia, chronic fatigue syndrome, hyperlipidemia, sinus problems, hypothyroidism, diabetes mellitus, acid reflux. PAST SURGICAL HISTORY: Tonsillectomy, , sinus surgery. SOCIAL HISTORY: Negative for smoking. Alcohol consumption rarely to occasional. CURRENT MEDICATIONS: 1. Atorvastatin 40 mg once a day. 2. Ezetimibe 10 mg once a day. 3. Pregabalin 200 mg two capsules a day. 4. Venlafaxine 150 mg once a day. 5. 3 mg once a day at bedtime. 6. Montelukast 10 mg once a day. 7. Hydrochlorothiazide/losartan 12.5/50 mg once a day. 8. Synthroid 125 mcg once a day. 9. Dicyclomine 10 mg once a day. 10.Metformin 500 mg three times a day. 11.Flonase 50 mcg spray. 12.Vitamin D3. 13.Melatonin. 14.Metoprolol extended-release 25 mg once a day. 15.Omeprazole 20 mg once a day. FAMILY HISTORY: Hypertension, heart problems, thyroid problems, restless legs. REVIEW OF SYSTEMS: Restless leg symptoms, multiple awakenings from sleep. No fevers. No double vision. No recent chest pain. No shortness of breath. No abdominal pain. No bleeding episodes. No blood in the urine. No seizure episodes. PHYSICAL EXAMINATION: GENERAL: Pleasant lady without distress. VITAL SIGNS: BP 138/83, HR 76, RR 16, height 5 feet 5-1/2 inches, weight 246 pounds, body mass index 40.3, temperature 96.9, oxygen saturation at room air 96%. HEENT: PERRLA, EOMI, evaluation of oropharynx showed tongue protrudes midline. Low position of soft palate. NECK: Supple, no JVD. Thyroid is not palpable. Neck is wide; 16-1/2 inches in circumference. LUNGS: Clear to percussion and to auscultation. Good air exchange. No wheezing or rhonchi. HEART: S1, S2 regular. No murmurs, gallops, or rubs. ABDOMEN: Obese. EXTREMITIES: No clubbing or cyanosis. 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 Cranial nerves 2 to 7 intact. There is no fasciculation or atrophy. noted. No focal deficits observed. IMPRESSION: 1. Obstructive sleep apnea-hypopnea syndrome for more than 12 years. Patient has continued to use CPAP equipment all these years. Recently her CPAP unit was broken. The patient has multiple awakenings from sleep, wide neck, 16-1/2 inches in circumference, low position of soft palate; obstructive sleep apnea-hypopnea syndrome. 2. Obesity; body mass index 40.3. 3. Restless leg symptoms. 4. Hypertension. 5. Questionable history of hypnagogic hallucinations. 6. Fibromyalgia. 7. History of chronic fatigue syndrome. 8. Hyperlipidemia. 9. History of sinusitis. 10.Hypothyroidism. 11.Diabetes mellitus. 12.Acid reflux. 13.Sinus problems. 14.Status post sinus surgery. 15.Status post tonsillectomy. 16.Status post . PLAN: 1. Prescription to replace CPAP unit. The patient will get a new CPAP unit with automatic regimen of treatment, nasal pillow mask, and all necessary supplies. 2. Patient should use her CPAP equipment every night for the whole night. 3. Follow-up visit to check the patient's compliance with treatment in 30-90 days after she is re-initiated on treatment with CPAP. 4. Losing weight. 5. Precautions related to driving. No driving if feeling any sleepiness. Thank you very much for referring this patient for consultation. Sincerely, Nikhil Rosenberg MD, PhD, FAASM Diplomat of [place] [employer] Sleep Medicine Board of [place] [employer] Driver [facility] [place] SANTA / CLEMENCIA: [id number] /
== END | disposition home or self-care (01) ==
LOC: SLEEP 15:37
PROVIDERS: ATTEND Internal Medicine
DX: G47.33 Obstructive sleep apnea (adult) (pediatric) (principal); E66.9 Obesity, unspecified; I10 Essential (primary) hypertension; M79.7 Fibromyalgia; E78.5 Hyperlipidemia, unspecified; E03.9 Hypothyroidism, unspecified; E11.9 Type 2 diabetes mellitus without complications; K21.9 Gastro-esophageal reflux disease without esophagitis; Z90.89 Acquired absence of other organs; Z68.41 Body mass index [BMI] 40.0-44.9, adult
CPT/HCPCS: 99211

== ENCOUNTER → 2021-07-24 | Outpatient (CLI) | payer MEDICARE, BC ==
[2021-07-24 11:58] LABS: Basophils # (A) 0.06 X 10*3/uL (0.00-0.10); Basophils % (A) 0.7 %; Eosinophils # (A) 0.17 X 10*3/uL (0.04-0.35); HCT 43.9 % (37.2-46.3); HGB 14.3 g/dL (12.0-15.0); Immature Grans, Automated 0.5 %; Lymphocytes # (A) 2.15 X 10*3/uL (0.90-5.00); Lymphocytes % (A) 25.7 %; MCH 30.5 pg (27.0-32.0); MCHC 32.6 g/dL (32.0-37.0); MCV 93.6 fL (80.0-97.0); Mean Platelet Volume 10.4 fL (9.5-12.2); Monocytes # (A) 0.65 X 10*3/uL (0.20-1.00); Monocytes % (A) 7.8 %; NRBC Per 100 WBC 0 /100 WBCS (0.0-0.0); Neutrophils # (A) 5.29 X 10*3/uL (1.80-7.70); Neutrophils % (A) 63.3 %; Platelet Count 281 X 10*3/uL (140-440); RBC 4.69 X 10*6/uL (4.10-5.20); RDW 12.6 % (11.5-14.5); WBC 8.36 X 10*3/uL (4.50-10.00)
[2021-07-24 12:11] LABS: ALT 25 U/L (8-44); AST 20 U/L (13-35); African American GFR (CKD) 93.3 (60.0-200.0); Albumin 4.4 g/dL (3.8-4.9); Albumin/Globulin Ratio 1.74 (1.60-3.17); Alkaline Phosphatase 77 U/L (41-126); BUN/Creat Ratio 20.58 Ratio (12.00-20.00); Blood Urea Nitrogen 16.4 mg/dL (9.0-27.0); Calcium 9.6 mg/dL (8.7-10.3); Carbon Dioxide 23.9 mmol/L (20.0-27.5); Chloride 103 mmol/L (96-109); Chol/HDL Ratio 4.35 Ratio; Globulin 2.5 g/dL (1.6-3.3); Glucose 164 mg/dL (70-110); Non-African American GFR(CKD) 80.5 (60.0-200.0); Potassium 4.2 mmol/L (3.5-5.5); Sodium 140 mmol/L (135-145)
== END | disposition home or self-care (01) ==
LOC: LABWHC1 09:28
PROVIDERS: ATTEND Family Medicine
DX: E03.9 Hypothyroidism, unspecified (principal); E11.9 Type 2 diabetes mellitus without complications; M79.7 Fibromyalgia; G47.00 Insomnia, unspecified; M51.9 Unspecified thoracic, thoracolumbar and lumbosacral intervertebral disc disorder
CPT/HCPCS: 36415; 80053; 80061; 83036; 84443; 85025

== ENCOUNTER → 2022-01-17 | Outpatient (CLI) | payer MEDICARE, BC ==
[2022-01-17 13:03] VITALS: BP 146/77; PULSE 76; RESP 16; TEMP 98.2
--- NOTE | 2022-01-17 14:11 | XR ---
EXAMINATION TYPE: XR cervical spine limited DATE OF EXAM: 01/17/2022 COMPARISON: NONE HISTORY: Pain TECHNIQUE: 3 views are submitted. FINDINGS: The odontoid is intact. There are no compression deformities. The prevertebral soft tissue structur es are within normal limits. Hypertrophic and degenerative changes C5-C6. IMPRESSION: 1. Hypertrophic and degenerative change C5-C6. Recommend follow-up MRI.
--- NOTE | 2022-01-17 14:23 | P.PAINPG ---
PQRS Measure Charge Sheet Comment: HISTORY OF PRESENT ILLNESS: 61 yr old female as a referral from Dr. Gallardo presents today w severe and chronic neck pain secondary to DDD, spondylosis and facet arthropathy without myelopathy for an evaluation. Pt states her pain level is currently at 3/10 in intensity, constant, localized at the base of the head, throbbing/ achy in character w radiation towards the BUEs. PT was 3 yrs ago but ineffective. Provoked w lifting. Palliated w chiropractic treatments in 2019, meds (Minerva Thompson from her PCP), topicals, repositioning and rest. PMH: CAD, Diabetes Mellitus, Fibromyalgia, GERD, Hyperlipidemia, OA, Sleep Apnea, Thyroid Disorder PSH: Section, Tonsillectomy, Sinus Surgery, Colonoscopy (2020) SH: Never smoker, No ETOH abuse, No illicit drug use. FH: Non contributory All: see list Meds: see list REVIEW OF ORGAN SYSTEMS: CONSTITUTIONAL: No fevers or chills. No recent weight loss. NEUROLOGICAL: + numbness and tingling along the distal extremities. No seizure disorders or headaches. MUSCULOSKELETAL: + pain PSYCHIATRIC: Denies current depression or suicidal thoughts. Physical Examinations : Constitutional : Cooperative , not in acute distress . Neurologic : Cranial nerve II to XII intact. No focal neurological deficits. Psychiatric : alert & oriented x 3. Matching mood & appropriate affect. Judgment & insight intact. Musculoskeletal : Cervical Spine +L AMALIA TTP Motor strength in the deltoid and biceps: Normal right side. Normal Left side Motor strength biceps and the wrist extensors: Normal right side . Normal left side Motor strength in the triceps muscle: Normal right side. Normal left side Deep tendon reflexes: Normal at the biceps. Normal at Brachioradialis. Normal at triceps Vertebral body tenderness to deep palpation over Cervical facet loading test: positive bilaterally Spurling test: positive bilaterally Neck distraction test: positive bilaterally Ronaldo sign: positive bilaterally Lumbar spine Motor strength lower extremities ,thigh and legs 5/5 Right side , 5/5 Left side Deep tendon reflexes : Normal Knee Jerk. Normal Ankle Jerk Vertebral body tenderness over Lumbar facet Loading Test: positive R ight / positive Left Range of motion of the lumbar spine Flexion 30 degrees, extension 10 degrees Straight Leg Raise test: Left/ Right positive at degree Angela test: positive right / positive left. Severe tenderness over the Sacroiliac joint on the Right / Left sides Gaenslen test: positive bilaterally Seated flexion test: positive bilaterally. Sacral spine : Severe tenderness over the Sacroiliac joint: right side / left side Range of motion: Flexion of the lumbar spine <60 degrees Range of motion: Extension of the lumbar spine <20 degrees Gaenslen's Test positive Lion's Test positive Angela test: positive right side / left side Thigh Thrust Test Sacral Thrust Test Imaging: MRI of the brain from 2019 reviewed Assessment/ Plan : Occipital Neuralgia, Cervicogenic SEPULVEDA Recommendation of L AMALIA injection. May need a series, up to RFA, for optimal pain relief. Risks, benefits of procedure discussed and patient verbalized understanding. Denies aspirin or anti- coagulant use and admits to a medical history of diabetes. Protocol for discontinuation/ continuation of medications tania procedure discussed. Cervical X ray Re: M50.30. May need MRI without contrast of cervical spine if necessary. All questions answered. I have spent greater than 30 minutes on patient care today. Dr Shea was available by phone for the evaluation of this patient. The time was used to review the medical records including relevant urine studies and Prescription history (MAPs), review of the available imaging, evaluation and examination of the patient, coordination of care with the medical staff and if applicable referring physicians, as well as creation of the medical record - Pain Location Neck Non-Pharmacological Interventions: Chiropractic Treatment, Inactivity, Massage, Physical Therapy, Position/Reposition Pharmacological Interventions: PRN Medication, Scheduled Medication, Topical Medication PQRS Narrative: Smoking Status Never smoker Home Medications: Ambulatory Orders Eszopiclone [Lunesta] 3 mg PO HS PRN 09/18/13 Fluticasone Propionate [Flonase] 1 - 2 spray EA NOSTRIL DAILY PRN 09/18/13 Levothyroxine Sodium [Synthroid] 125 mcg PO DAILY 09/18/13 Pregabalin [Lyrica] 400 mg PO HS 09/18/13 Dicyclomine [Bentyl] 10 mg PO TID PRN 07/19/16 Cholecalciferol (Vitamin D3) [Vitamin D3] 125 mcg PO DAILY 09/13/19 Losartan/Hydrochlorothiazide [Losartan-Hctz 50-12.5 mg Tab] 1 tab PO DAILY 09/13/19 Montelukast [Singulair] 10 mg PO DAILY 09/13/19 metFORMIN HCL [Glucophage] 500 mg PO TID 09/13/19 Atorvastatin Calcium [Lipitor] 20 mg PO HS 07/16/20 Ezetimibe [Zetia] 10 mg PO DAILY 07/16/20 Melatonin [Melatonin ER] 10 mg PO HS 07/16/20 Metoprolol Succinate (ER) [Toprol Xl] 25 mg PO HS 07/16/20 HYDROcodone/APAP 7.5-325MG [[place] 7.5-325] 1 tab PO TID 11/11/20 Atorvastatin [Lipitor] 40 mg PO DAILY 01/17/22 DULoxetine HCL [Cymbalta] 60 mg PO 01/17/22 Loratadine 10 mg PO 01/17/22 Omeprazole 20 mg PO 01/17/22 Controlled Substance Measures - Controlled Substance Measures Is patient prescribed a controlled substance at discharge?: No
== END | disposition home or self-care (01) ==
LOC: PNWHC3 12:31
PROVIDERS: ATTEND Specialist
DX: G44.86 Cervicogenic headache (principal); M54.81 Occipital neuralgia; M50.30 Other cervical disc degeneration, unspecified cervical region
CPT/HCPCS: 72040; G0463; 99211

== ENCOUNTER → 2022-01-18 | Outpatient (CLI) | payer MEDICARE, BC ==
--- NOTE | 2022-01-18 13:24 | CT ---
EXAMINATION TYPE: CT abdomen pelvis wo con DATE OF EXAM: 01/18/2022 COMPARISON: 07/11/2019 HISTORY: 61-year-old female R1 9.0, abdominal pain and distention CT DLP: 1245 mGycm. Automated exposure control for dose reduction was used. TECHNIQUE: Contiguous axial scanning of the abdomen and pelvis without IV contrast. Coronal and sagit [place] reconstructions performed. FINDINGS: Heart normal size without pericardial effusion. Lung bases clear without pleural effusion. Liver enlarged at 21.6 cm with diminished attenuation suggesting at least mild fatty infiltration. Otherwise, noncontrast appearance of the gallbladder, right adrenal gland, right kidney, spleen, and pancreas shows no gross body. Similar diffuse low-density thickening left adrenal gland. 4 mm and punctate 2 mm nonobstructive left renal calculi. Unchanged fullness left renal collecting sy stem but normal left ureter, possible underlying parapelvic cysts. No dilated small bowel, free fluid, free air. No mesenteric or retroperitoneal lymphadenopathy. Tiny fatty umbilical hernia. Normal appendix. There is moderate stool burden. No pericolic inflammatory change. Mildly redundant s igmoid colon. Bladder urine distended. A pessary device is in place. The uterus is anteverted. Pelvic phleboliths. Small bilateral ovaries. No abnormal fluid collection in the pelvis or pelvic lymphadenopathy. Bones: Mild degenerative change of the hips. Unchanged sclerotic foci posterior iliac bones suggestin g bone islands. Facet arthropathy mid to lower lumbar spine. Moderate degenerative disc disease visua lized lower thoracic spine. IMPRESSION: 1. Moderate stool burden. 2. Hepatomegaly at 21.6 cm with at least moderate hepatic steatosis. Correlate with LFTs, lipid prof ile, and patient risk factors. 3. A couple nonobstructive left renal stones measuring up to 4 mm. No hydronephrosis. Suspect some u nderlying parapelvic cysts in the left kidney. 4. Indwelling pessary device. 5. Unchanged low-density thickening of the left adrenal gland, possible underlying adrenal hyperplas ia.
== END | disposition home or self-care (01) ==
LOC: RADCTMAIN 10:27
PROVIDERS: ATTEND Family Medicine
DX: R19.00 Intra-abdominal and pelvic swelling, mass and lump, unspecified site (principal)
CPT/HCPCS: 74176

== ENCOUNTER → 2022-02-09 | Outpatient (CLI) | payer MEDICARE, BC ==
--- NOTE | 2022-02-09 12:41 | MR ---
EXAMINATION TYPE: MR cervical spine wo con DATE OF EXAM: 02/09/2022 COMPARISON: Cervical spine radiograph 01/17/2022 HISTORY: Neck pain radiating into upper extremities, Disc degeneration TECHNIQUE: Multiplanar, multisequence images of the cervical spine were acquired without contrast. FINDINGS: Cervical segments are intact. There is normal alignment. Cervical spinal cord is of normal signal. Craniovertebral junction relationships are within normal limits. Multilevel disc desiccation. C2-C3: No disc bulge/herniation or protrusion. No Canal stenosis. Foramina are patent bilaterally. C3-C4: No disc bulge/herniation or protrusion. Uncovertebral joint hypertrophy. No Canal stenosis. R ight neural foraminal stenosis. The left neural foramen is patent. C4-C5: No disc bulge/herniation or protrusion. No Canal stenosis. Foramina are patent bilaterally. C5-C6: Broad-based disc bulge with minimal effacement of the anterior thecal sac. Uncovertebral joint hypertrophy contributing to mild bilateral neural foraminal stenosis. C6-C7: No disc bulge/herniation or protrusion. No Canal stenosis. Uncovertebral joint hypertrophy w ith mild to moderate narrowing of the left neural foramen. The right neural foramen is patent. C7-T1: No disc bulge/herniation or protrusion. No Canal stenosis. Foramina are patent bilaterally. There is caudal extrusion T1-T2 with mild effacement of the anterior thecal sac (series 501, image 9) . The caudal extrusion extends 3 mm along the posterior aspect of the T2 vertebral body. This is only evaluated on the sagittal images. IMPRESSION: 1. Multilevel degenerative disc disease most pronounced at C5-C6. 2. Caudal extrusion at T1-T2 with mild effacement of the anterior thecal sac. Further evaluation wit h thoracic spine MRI is recommended.
== END | disposition home or self-care (01) ==
LOC: RADMRIMAIN 11:15
PROVIDERS: ATTEND Specialist
DX: M50.30 Other cervical disc degeneration, unspecified cervical region (principal)
CPT/HCPCS: 72141

== ENCOUNTER → 2022-02-18 | Outpatient (CLI) | payer MEDICARE, BC ==
[2022-02-18 18:06] LABS: Basophils # (A) 0.05 X 10*3/uL (0.00-0.10); Basophils % (A) 0.7 %; Eosinophils # (A) 0.08 X 10*3/uL (0.04-0.35); Eosinophils % (A) 1.2 %; HCT 41.3 % (37.2-46.3); HGB 13.5 g/dL (12.0-15.0); Immature Grans, Automated 0.4 %; Lymphocytes # (A) 1.67 X 10*3/uL (0.90-5.00); Lymphocytes % (A) 24.4 %; MCH 30.5 pg (27.0-32.0); MCHC 32.7 g/dL (32.0-37.0); MCV 93.2 fL (80.0-97.0); Mean Platelet Volume 10.4 fL (9.5-12.2); Monocytes # (A) 0.46 X 10*3/uL (0.20-1.00); Monocytes % (A) 6.7 %; NRBC Per 100 WBC 0 /100 WBCS (0.0-0.0); Neutrophils # (A) 4.56 X 10*3/uL (1.80-7.70); Neutrophils % (A) 66.6 %; Platelet Count 274 X 10*3/uL (140-440); RBC 4.43 X 10*6/uL (4.10-5.20); RDW 12.6 % (11.5-14.5); WBC 6.85 X 10*3/uL (4.50-10.00)
[2022-02-18 18:26] LABS: ALT 23 U/L (8-44); AST 15 U/L (13-35); African American GFR (CKD) 92.9 (60.0-200.0); Blood Urea Nitrogen 11.6 mg/dL (9.0-27.0); Calcium 9.4 mg/dL (8.7-10.3); Carbon Dioxide 24.3 mmol/L (20.0-27.5); Chloride 103 mmol/L (96-109); Creatine Kinase 123 U/L (26-186); Glucose 148 mg/dL (70-110); Non-African American GFR(CKD) 80.1 (60.0-200.0); Potassium 4.2 mmol/L (3.5-5.5); Sodium 139 mmol/L (135-145); Uric Acid 4.4 mg/dL (2.9-7.7)
[2022-02-18 19:00] LABS: Erythrocyte Sedimentation Rate 5 mm/Hr (0-30)
[2022-02-18 19:24] LABS: C Reactive Protein <0.30 mg/dL (0.00-0.80); Rheumatoid Factor, Qnt <10 IU/mL (0-15)
[2022-02-18 20:14] LABS: Cyclic Citrull Pep IgG Unit <0.5 U/mL; Cyclic Citrullinated Pep IgG NEGATIVE (NEGATIVE)
[2022-02-19 19:30] LABS: HLA B27 NEGATIVE
== END | disposition home or self-care (01) ==
LOC: LABWHC1 12:11
PROVIDERS: ATTEND Internal Medicine Rheumatology
DX: M13.0 Polyarthritis, unspecified (principal)
CPT/HCPCS: 36415; 80048; 82164; 82306; 82550; 83520; 84439; 84443; 84450; 84460; 84550; 85025; 85652; 86038; 86140; 86200; 86431; 86812

== ENCOUNTER 2022-02-24 13:05 | Day surgery (SDC) | payer MEDICARE, BC ==
[2022-02-22 12:46] VITALS: BMI 38.2
[~2022-02-24 13:05] MED LIST changes: +LIDOCAINE 1% (10MG/ML) FOR IV START INTRADERMA PRN
[2022-02-24 13:51] VITALS: TEMP 97.1
[2022-02-24 13:51] LABS: Glucose,Whole Blood 111 mg/dL (70-110)
[2022-02-24] MEDS ORDERED: methylPREDNISolone ACETATE 40 MG/ML 1 ML VIAL ONE (13:59)
[2022-02-24] MEDS ORDERED: ROPIVACAINE 5 MG/ML 20 ML AMPULE ONE (13:59)
--- NOTE | 2022-02-24 14:08 | P.PCN ---
Date of Procedure: 02/24/22 Procedure(s) Performed: Preoperative diagnoses= 1- Greater occipital neuralgia 2-cervical degenerative disc disease. 3-cervical spondylosis with cervical facet arthropathy Postoperative diagnoses= same as preoperative diagnosis. Procedure= Left Greater occipital nerve block Anesthesia=none: . Estimated blood loss=minimal. Procedure indication= the patient had a history of severe chronic neck pain ,and headache, diagnosed with occipital neuralgia exam was positive for severe tenderness over the left occipital nerve area, she will be a good candidate occipital nerve block, patient failed conservative management Procedure description= the patient was seen and identified in the preoperative holding area, risks and benefits and alternative of the procedure and possible complications discussed with the patient, and he agreed with the preceding, patient signed the consent, an IV was started, and vital signs were monitored and were stable throughout the procedure, patient was placed in the sitting position or table and the neck area was prepped and draped with a sterile fashion, vital signs were closely monitored during the procedure, 25-gauge needle advanced 1 inch lateral to the occipital protuberance on the Left side, at the location of the Left occipital nerve , then after negative aspiration for heme and CSF and there was no paresthesia during the injection, 6 ml of Robivacaine 0.5% and 40 mg of Depo-Medrol injected after negative aspiration, the needle removed. Patient tolerated the procedure well without any complication, The patient returned to supine position after the back was cleaned and a Band- Aid applied, the patient transported to recovery room in stable condition and he was monitored for 30 minutes before he was discharged home and then patient was reexamined before going home and patient was discharged in stable condition and patient will follow up with the pain clinic in a few weeks.
[2022-02-24 14:26] VITALS: BP 113/68; PULSE 65; RESP 18
== END 2022-02-24 14:41 | disposition home or self-care (01) ==
LOC: ORPAIN 13:05
PROVIDERS: ATTEND Specialist
DX: M54.81 Occipital neuralgia (principal); M50.30 Other cervical disc degeneration, unspecified cervical region; M47.812 Spondylosis without myelopathy or radiculopathy, cervical region; G89.29 Other chronic pain
CPT/HCPCS: 64405; J1030; J2795

== ENCOUNTER → 2022-03-02 | Outpatient (CLI) | payer MEDICARE, BC ==
--- NOTE | 2022-03-02 10:10 | US ---
EXAMINATION TYPE: US liver DATE OF EXAM: 03/02/2022 COMPARISON: CT abdomen June 20, 2021 and older study 2019 CLINICAL HISTORY: R16.0 hepatomegaly. Hepatomegaly TECHNIQUE: Multiple sonographic images of the right upper quadrant are obtained. 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 No aneurysm in the abdominal aorta. IVC seen in the hepatic dome. Visualized liver heterogeneous hyperechoic cyst with known fatty infiltrative hepatocellular d isease. Stable hepatomegaly. No new ascites. Gallbladder shows no shadowing mobile gallstones. No rig ht-sided hydronephrosis. IMPRESSION: Hepatomegaly with fatty infiltrative hepatocellular disease redemonstrated.
== END | disposition home or self-care (01) ==
LOC: RADUSWWP 09:24
PROVIDERS: ATTEND Family Medicine
DX: K76.0 Fatty (change of) liver, not elsewhere classified (principal); R16.0 Hepatomegaly, not elsewhere classified
CPT/HCPCS: 76705

== ENCOUNTER → 2022-03-09 | Outpatient (CLI) | payer MEDICARE, BC ==
--- NOTE | 2022-03-09 12:37 | P.PN ---
Subjective DATE: 03/09/2022 FOLLOW UP VISIT. Patient with obstructive sleep apnea hypopnea syndrome return to sleep center for follow-up visit. Patient received new CPAP unit and this is her first visit after starting using new CPAP equipment. Patient was able to use PAP equipment every night for the whole night. She has some episodes of snoring and feels that pressure is not enough once a starting to use use CPAP unit. The patient does not have significant problems with the mask. Patient does not use humidifier. [place] sleepiness scale is 0. I checked PAP unit. PAP unit pressure from 6-11, average 9.9, maximum 10.6 cm H2O. Usage is 91 % for more then 4 hours, average 7-3/4 hours per night. Leak is 19.3 l/m, which is in acceptable range. Apnea Hypopnea Index is 0.9, which is perfect. MEDICATIONS:1. Atorvastatin 40 mg once a day 2. Ezetimibe 10 mg once a day 3. Venlafaxine 150 mg once a day 4. Losartan hydrochlorothiazide 5. Synthroid 125 g once a day 6. Metformin 500 mg 3 times a day 7. Flonase 8. Metoprolol 9. Omeprazole During physical exam: GENERAL: A pleasant patient without any distress. VITAL SIGNS: BP 152/81, HR 74, RR 16, weight 239.0, temperature 96.8, oxygen saturation at room air 96. HEENT: PERRLA, EOMI.low position of soft palate. NECK: Supple. No JVD. LUNGS: Clear to percussion and to auscultation. Good air exchange. No wheezing or rhonchi. HEART: S1, S2 regular. ABDOMEN: Soft and nontender. Obese EXTREMITIES: No clubbing or cyanosis. QUALITY PROCESS LEAD: Awake, alert, and oriented x3. No focal deficit. Impressions: 1. Obstructive sleep apnea-hypopnea syndrome. Patient demonstrated great compliance with treatment, benefiting from treatment. 2. Obesity. 3. Hypertension. 4. History of fibromyalgia. 5. Hyperlipidemia. 6. Hypothyroidism. 7. Diabetes mellitus. 8. Acid reflux. 9. History of sinuses problems, status post sinus surgery 10. Status post tonsillectomy. Plan: 1. Continue using PAP equipment every night for the whole night. 2. To change air filter at least 1-2 times per month. 3. PAP unit should stay lower then position of the head. 4. Advised patient to remove all remaining water from humidifier canister daily and make it dry after each usage. Refill canister with fresh distilled water before each usage. 5. Sleep hygiene with regular time in bed for at least 8 hours. 6. Precautions related to driving. No driving if feel any sleepiness. 7. I will maintain prescription for PAP supplies including mask, tube, filters. 8. Follow up visit in 6 months or earlier if patient has any problems. 9. Watching and losing weight. Thank you very much for allowing me to participate in the management of your patient. Nikhil Rosenberg MD, PhD, FAASM. Diplomat of [employer], Sleep Medicine Board by [employer] [facility] [place]
== END ==
LOC: SLEEP 11:32
PROVIDERS: ATTEND Internal Medicine
DX: G47.33 Obstructive sleep apnea (adult) (pediatric) (principal); E66.9 Obesity, unspecified; I10 Essential (primary) hypertension; E78.5 Hyperlipidemia, unspecified; Z87.39 Personal history of other diseases of the musculoskeletal system and connective tissue; E03.9 Hypothyroidism, unspecified; E11.9 Type 2 diabetes mellitus without complications; K21.9 Gastro-esophageal reflux disease without esophagitis; Z98.890 Other specified postprocedural states; Z88.2 Allergy status to sulfonamides; Z88.6 Allergy status to analgesic agent; Z99.89 Dependence on other enabling machines and devices
CPT/HCPCS: 99212

== ENCOUNTER → 2022-03-14 | Outpatient (CLI) | payer MEDICARE, BC ==
[2022-03-14 12:44] VITALS: BP 144/86; PULSE 71; RESP 18; TEMP 98.1
--- NOTE | 2022-03-14 14:52 | P.PAINPG ---
PQRS Measure Charge Sheet Comment: A 62 yr old female with a history of severe and chronic SEPULVEDA pain x 30 yrs secondary to occipial neuralgia and cervicogenic SEPULVEDA presents today for evaluation s/p L AMALIA injection. Pt states she received no relief from prior procedure. Pain level is currently at 5/10 in intensity, constant, localized in the base of the head, achy in character w shooting towards the BL scalp, L>R. Pain is provoked by lifting with the UEs. Pain is alleviated with PT years ago which was not effective, massage therapy was too costly for her, heat, ice, medications ([place], Ibu), topicals, repositioning and rest. Pt stated she developed a redness and swelling on her chest, arms and upper back for 7 days after receiving the injection. 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 Interventional pain procedures completed include L AMALIA x1 Patient is currently on [place], Ibu Patient denies any side effects of the medication(s), denies excessive drowsiness or sleepiness, denies suicidal ideation and reports that the current pain medication is helping to control the pain and improve activities of daily living. Patient denies any motor or sensory deficits. Patient denies any fever or night sweats, denies any change in the bowel movements or urination. Physical Examination: -Constitutional: Cooperative. Not in acute distress . - Neurologic: Cranial nerve II to XII intact. No focal neurological deficits. - Psychatric: Alert & oriented x 3. Matching mood & appropriate affect. Judgment and insight intact. - Musculoskeletal: Cervical spine: Muscle bulk/ tone/ strength in the bilateral upper extremities normal Vertebral body tenderness to palpation over Sp[place]ling test positive Distraction test positive Facet loading test positive TTP over BL C2-C3, C3-C4, L>R Thoracic spine Muscle bulk / tone/ strength in the bilateral paraspinal muscles normal Vertebral body tender to palpation over Facet loading test positive Lumbar spine: Motor bulk/ tone/ strength lower extremities , thigh and legs : 5/5 Deep tendon reflexes : Normal Knee Jerk. Normal Ankle Jerk . Vertebral body tenderness to palpation over Lumbar Facet Loading Test positive Straight Leg Raise: positive at 30 degrees right side/ left side Gaenslen's Test positive Sacral spine : Severe tenderness over the Sacroiliac joint: right side / left side Range of motion: Flexion of the lumbar spine <60 degrees Range of motion: Extension of the lumbar spine <20 degrees Gaenslen's Test positive Angela test: positive right side / left side Thigh Thrust Test Sacral Thrust Test Assessment and plan: Chronic SEPULVEDA pain secondary to occipital neuralgia and cervicogenic SEPULVEDA Recommendation of BL facet block of the medial branches C2-C3, C3-C4 #1 but pt stated she wants to put it off until she follows up w an asthma & design engineering specialist. May need a series of injections, up until RFA, for optimal pain relief. Risks, benefits of procedure discussed and pt verbalized understanding. Admits to anticoagulant use or medical history of diabetes. Protocol for discontinuation/ continuation of medications tania procedure discussed. All patient questions answered I have spent less than 30 minutes on patient care today. Dr Shea was available by phone for the evaluation of this patient. The time was used to review the medical records including relevant urine studies and Prescription history (MAPs), review of the available imaging, evaluation and examination of the patient, coordination of care with the medical staff and if applicable referring physicians, as well as creation of the medical record PQRS Narrative: Smoking Status Never smoker Hx Alcohol Use (MH) No Home Medications: Ambulatory Orders Eszopiclone [Lunesta] 3 mg PO HS PRN 09/18/13 Fluticasone Propionate [Flonase] 1 - 2 spray EA NOSTRIL DAILY PRN 09/18/13 Levothyroxine Sodium [Synthroid] 125 mcg PO DAILY 09/18/13 Pregabalin [Lyrica] 400 mg PO HS 09/18/13 Dicyclomine [Bentyl] 10 mg PO TID PRN 07/19/16 Cholecalciferol (Vitamin D3) [Vitamin D3] 125 mcg PO DAILY 09/13/19 Losartan/Hydrochlorothiazide [Losartan-Hctz 50-12.5 mg Tab] 1 tab PO DAILY 09/13/19 Montelukast [Singulair] 10 mg PO DAILY 09/13/19 Ezetimibe [Zetia] 10 mg PO DAILY 07/16/20 Melatonin [Melatonin ER] 10 mg PO HS 07/16/20 Metoprolol Succinate (ER) [Toprol Xl] 25 mg PO HS 07/16/20 HYDROcodone/APAP 7.5-325MG [[place] 7.5-325] 1 tab PO TID 11/11/20 Atorvastatin [Lipitor] 40 mg PO DAILY 01/17/22 Loratadine 10 mg PO DAILY 01/17/22 Omeprazole 20 mg PO DAILY 01/17/22 Venlafaxine HCl ER [Effexor Xr] 150 mg PO HS 02/22/22 metFORMIN HCL 1,000 mg PO BID 02/22/22 Controlled Substance Measures - Controlled Substance Measures Is patient prescribed a controlled substance at discharge?: No
== END ==
LOC: PNWHC3 12:00
PROVIDERS: ATTEND Specialist
DX: M54.81 Occipital neuralgia (principal); Z79.01 Long term (current) use of anticoagulants; E11.9 Type 2 diabetes mellitus without complications; Z88.2 Allergy status to sulfonamides; Z88.6 Allergy status to analgesic agent; Z79.84 Long term (current) use of oral hypoglycemic drugs
CPT/HCPCS: 99211

== ENCOUNTER → 2022-04-06 | Outpatient (CLI) | payer MEDICARE, BC ==
--- NOTE | 2022-04-06 22:39 | FL ---
EXAMINATION TYPE: FL UGI air w small bowel DATE OF EXAM: 04/06/2022 COMPARISON: Prior upper GI study June 27, 2019. CT abdomen and pelvis January 18, 2022 HISTORY: Mid abdominal pain with swelling for 7 years. TECHNIQUE: A double contrast UGI study is performed with small bowel follow through. A total of 91 seconds of fluoroscopic time was utilized during procedure and 61 images obtained. FINDINGS: Size Marker image of the abdomen shows no gross abnormality. The esophagus shows satisfactory motility and emptying into the stomach. No proximal diverticulum. No evidence of stricture noted. The stomach shows shows unusual appearance in the fundus similar to prior, there is suggestion of mas s or masslike lesion but endoscopy 2019 show no lesion. There is however masslike thickening anterior wall of the gastric fundus just below diaphragm presumed corresponding to area of abnormality on thi s and prior upper GI study. There is suggestion of posterior fundal diverticulum but no corresponding abnormality seen of the anterior wall gastric fundus on most recent CT. There is moderate to severe gastric fundal prominence. Mild distal esophageal reflux was seen during real time performance of thi s study. The duodenal bulb and sweep are unremarkable. The small bowel study shows normal transit to the colon in less than 105 minutes. There is normal mu cosal fold pattern throughout the small bowel. There is no evidence of any stricture or filling defe ct noted. The terminal ileum is spotted and appears unremarkable. IMPRESSION: Current study shows moderate to severe fundal gastritis. There is mild distal gastroesop hageal reflux. There is suggestion of fundal diverticulum but this is not identified on recent CT. Th ere is suggestion of persistent fundal mass which corresponds to area of masslike thickening anterior wall of the gastric fundus. This had similar appearance to the prior upper GI images and no definiti ve mass was seen on endoscopy performed twice per patient.
== END | disposition home or self-care (01) ==
LOC: RADFLMAIN 08:57
PROVIDERS: ATTEND Internal Medicine Gastroenterology
DX: K21.9 Gastro-esophageal reflux disease without esophagitis (principal); K29.70 Gastritis, unspecified, without bleeding
CPT/HCPCS: 74240; 74248

== ENCOUNTER → 2022-04-08 | Outpatient (CLI) | payer MEDICARE, BC ==
[2022-04-08 18:50] LABS: Basophils # (A) 0.07 X 10*3/uL (0.00-0.10); Basophils % (A) 0.9 %; Eosinophils # (A) 0.13 X 10*3/uL (0.04-0.35); Eosinophils % (A) 1.7 %; HCT 40.6 % (37.2-46.3); HGB 13.6 g/dL (12.0-15.0); Immature Grans, Automated 0.5 %; Lymphocytes # (A) 1.97 X 10*3/uL (0.90-5.00); Lymphocytes % (A) 25.5 %; MCH 31.1 pg (27.0-32.0); MCHC 33.5 g/dL (32.0-37.0); MCV 92.7 fL (80.0-97.0); Mean Platelet Volume 10.3 fL (9.5-12.2); Monocytes # (A) 0.48 X 10*3/uL (0.20-1.00); Monocytes % (A) 6.2 %; NRBC Per 100 WBC 0 /100 WBCS (0.0-0.0); Neutrophils # (A) 5.03 X 10*3/uL (1.80-7.70); Neutrophils % (A) 65.2 %; Platelet Count 275 X 10*3/uL (140-440); RBC 4.38 X 10*6/uL (4.10-5.20); WBC 7.72 X 10*3/uL (4.50-10.00)
[2022-04-08 19:13] LABS: ALT 25 U/L (8-44); AST 16 U/L (13-35); Albumin 4.2 g/dL (3.8-4.9); Albumin/Globulin Ratio 2.37 (1.60-3.17); Alkaline Phosphatase 70 U/L (41-126); Bilirubin, Conjugated <0.20 mg/dL (0.20-0.40); Globulin 1.8 g/dL (1.6-3.3); Total Bilirubin <0.15 mg/dL (0.30-1.20)
[2022-04-08 19:21] LABS: Hepatitis A Antibody IgM Nonreactive (Nonreactive); Hepatitis B Core IgM Nonreactive (Nonreactive); Hepatitis B Surface Antigen Nonreactive (Nonreactive); Hepatitis C IgG Antibody Nonreactive (Nonreactive)
== END | disposition home or self-care (01) ==
LOC: LABWHC1 12:59
PROVIDERS: ATTEND Nurse Practitioner Family
DX: K76.0 Fatty (change of) liver, not elsewhere classified (principal)
CPT/HCPCS: 36415; 80074; 80076; 85025

== ENCOUNTER 2022-04-30 09:37 | Emergency (ER) | payer MEDICARE, BC ==
[2022-04-30 10:13] LABS: Basophils # (A) 0.1 k/uL (0-0.2); Basophils % (A) 1 %; Eosinophils # (A) 0.3 k/uL (0-0.7); Eosinophils % (A) 3 %; HCT 45.2 % (34.0-46.0); HGB 15.3 gm/dL (11.4-16.0); Lymphocytes # (A) 2.4 k/uL (1.0-4.8); Lymphocytes % (A) 26 %; MCHC 33.8 g/dL (31.0-37.0); MCV 91.6 fL (80.0-100.0); Mean Platelet Volume 8.4; Monocytes # (A) 0.4 k/uL (0-1.0); Monocytes % (A) 5 %; Neutrophils # (A) 5.7 k/uL (1.3-7.7); Neutrophils % (A) 63 %; Platelet Count 265 k/uL (150-450); RBC 4.94 m/uL (3.80-5.40); RDW 12.8 % (11.5-15.5)
[2022-04-30 10:16] LABS: Glucose,Whole Blood 150 mg/dL (70-110)
[2022-04-30 10:29] LABS: ALT 26 U/L (4-34); AST 24 U/L (14-36); African American GFR (CKD) >90 (>60 ml/min/1.73 sqM); Albumin 4.4 g/dL (3.5-5.0); Alcohol <10 mg/dL; Alkaline Phosphatase 74 U/L (38-126); Anion Gap 10 mmol/L; Blood Urea Nitrogen 12 mg/dL (7-17); Calcium 9.3 mg/dL (8.4-10.2); Carbon Dioxide 26 mmol/L (22-30); Chloride 105 mmol/L (98-107); Glucose 153 mg/dL (74-99); Non-African American GFR(CKD) >90 (>60 ml/min/1.73 sqM); Potassium 3.8 mmol/L (3.5-5.1); Sodium 141 mmol/L (137-145); Total Bilirubin 0.7 mg/dL (0.2-1.3)
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
[2022-04-30 11:15] LABS: INR 0.9 (<1.2); Partial Thromboplastin Time 23.7 sec (22.0-30.0); Prothrombin Time 9.7 sec (9.0-12.0)
[2022-04-30 11:16] LABS: Amphetamine Screen,Urine Not Detected (NotDetected); Barbiturate Screen,Urine Not Detected (NotDetected); Benzodiazepines Screen,Urine Not Detected (NotDetected); Cocaine Screen,Urine Not Detected (NotDetected); Methadone Screen, Urine Not Detected (NotDetected); Opiate Screen,Urine Detected (NotDetected); Oxycodone Screen, Urine Not Detected (NotDetected); Phencyclidine Screen,Urine Not Detected (NotDetected); Tricyclic Antidepressant,Urine Not Detected (NotDetected); Urn Cannabinoid Scrn Not Detected (NotDetected)
[2022-04-30] MEDS ORDERED: HYDROmorphone 0.5 MG/0.5 ML SYRINGE IVP STA (12:02)
[2022-04-30 17:37] VITALS: BP 146/84; PULSE 83; RESP 20; TEMP 97.6
== END 2022-04-30 12:19 | disposition other institution (70) ==
LOC: EC 09:37
DX: T58.91XA Toxic effect of carbon monoxide from unspecified source, accidental (unintentional), initial encounter (principal); T22.212A Burn of second degree of left forearm, initial encounter; T23.242A Burn of second degree of multiple left fingers (nail), including thumb, initial encounter; T22.251A Burn of second degree of right shoulder, initial encounter; T31.21 Burns involving 20-29% of body surface with 10-19% third degree burns; I25.10 Atherosclerotic heart disease of native coronary artery without angina pectoris; E11.9 Type 2 diabetes mellitus without complications; K21.9 Gastro-esophageal reflux disease without esophagitis; E78.5 Hyperlipidemia, unspecified; G47.30 Sleep apnea, unspecified; E07.9 Disorder of thyroid, unspecified; F41.9 Anxiety disorder, unspecified; M19.90 Unspecified osteoarthritis, unspecified site; Z79.890 Hormone replacement therapy; Z79.899 Other long term (current) drug therapy; Z79.84 Long term (current) use of oral hypoglycemic drugs; Z88.2 Allergy status to sulfonamides; Z88.6 Allergy status to analgesic agent; X00.0XXA Exposure to flames in uncontrolled fire in building or structure, initial encounter; Y92.009 Unspecified place in unspecified non-institutional (private) residence as the place of occurrence of the external cause
CPT/HCPCS: 36415; 80053; 82375; 84484; 85025; 85610; 85730; 80306; 71046; 99291; 96374; G0480; J1170; 80320

== ENCOUNTER → 2022-07-13 | Day surgery (SDC) | payer MEDICARE, BC ==
[2022-07-12 11:51] VITALS: BMI 37.1
[~2022-07-13] MED LIST changes: +LACTATED RINGERS 1,000 ML IV ONE; +LIDOCAINE 2% INJ 20 MG/ML (2 ML VIAL) ONE; +PROPOFOL 10 MG/ML 20 ML VIAL IV ONE
[2022-07-13 08:42] VITALS: TEMP 96.9
[2022-07-13 08:56] LABS: Glucose,Whole Blood 136 mg/dL (70-110)
--- NOTE | 2022-07-13 09:28 | P.PCN ---
Date of Procedure: 07/13/22 Procedure(s) Performed: BRIEF HISTORY: Patient is a 62-year-old, pleasant, white female scheduled for an upper endoscopy as a part of evaluation of epigastric discomfort and history of GERD. Patient had an upper endoscopy done 2 years ago and was noted to have a submucosal lesion in the fundus of the stomach and subsequent he underwent an endoscopic ultrasound at [facility] and was diagnosed with gastric- leomyoma. She is presently maintained on Protonix 40 mg daily. Scheduled for a follow-up upper endoscopy. PROCEDURE PERFORMED: Esophagogastroduodenoscopy. PREOPERATIVE DIAGNOSIS: GERD and follow-up gastric the myoma IV sedation per anesthesia. PROCEDURE: After informed consent was obtained, the patient was brought into the endoscopy unit. IV sedation was administered by Anesthesia under continuous monitoring. Initially the Olympus GIF-140 video endoscope was inserted into the mouth. Esophagus intubated without any difficulty. It was gradually advanced into the stomach and duodenum and carefully examined. The bulb and the second part of the duodenum appeared normal. The scope at this time was withdrawn to the stomach, adequately insufflated with air, and upon careful examination, mucosa of the antrum, body, and the fundus appeared normal. On retroflexion in the cardia of the stomach there was a submucosal lesion identified measuring about 2 cm length with no significant change from the prior upper endoscopy. The scope was then withdrawn into the esophagus. The GE junction was located at 39 cm from the incisors. The esophagus appeared normal. There were no erosions or ulcerations seen and the patient tolerated the procedure well. IMPRESSION: 1. 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 2. Normal-appearing esophagus with no evidence of esophagitis or Vernon's esophagus. RECOMMENDATIONS: The findings of this examination were discussed with the patient as well as her family. She was advised to continue Protonix 40 mg daily and follow antireflux measures.
[2022-07-13 09:29] VITALS: RESP 16
[2022-07-13 09:43] VITALS: BP 151/69; PULSE 61
== END ==
LOC: ORWHC2ENDO 08:16
PROVIDERS: ATTEND Internal Medicine Gastroenterology
DX: K21.9 Gastro-esophageal reflux disease without esophagitis (principal); Z86.018 Personal history of other benign neoplasm; Z79.899 Other long term (current) drug therapy
CPT/HCPCS: 43235; J2704; J2001

== ENCOUNTER → 2022-07-22 | Outpatient (CLI) | payer MEDICARE, BC ==
[2022-07-22 22:55] LABS: T4, Free (Free Thyroxine) 1.35 ng/dL (0.800-1.800)
== END | disposition home or self-care (01) ==
LOC: LABWHC1 15:18
PROVIDERS: ATTEND Psychiatry & Neurology Neurology
DX: R53.83 Other fatigue (principal)
CPT/HCPCS: 36415; 82607; 84439; 84443; 84481

== ENCOUNTER → 2022-09-07 | Outpatient (CLI) | payer MEDICARE, BC ==
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
== END ==
LOC: SLEEP 13:12
PROVIDERS: ATTEND Internal Medicine
DX: G47.33 Obstructive sleep apnea (adult) (pediatric) (principal); E66.9 Obesity, unspecified; I10 Essential (primary) hypertension; M79.7 Fibromyalgia; E03.9 Hypothyroidism, unspecified; E78.5 Hyperlipidemia, unspecified; E11.9 Type 2 diabetes mellitus without complications; K21.9 Gastro-esophageal reflux disease without esophagitis; Z99.89 Dependence on other enabling machines and devices; Z79.84 Long term (current) use of oral hypoglycemic drugs; Z79.890 Hormone replacement therapy; Z98.890 Other specified postprocedural states; Z79.899 Other long term (current) drug therapy; Z88.6 Allergy status to analgesic agent; Z88.2 Allergy status to sulfonamides
CPT/HCPCS: 99212

== ENCOUNTER → 2023-03-22 | Outpatient (CLI) | payer MEDICARE, BC ==
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
== END ==
LOC: 3 N SLEEP 13:14
PROVIDERS: ATTEND Internal Medicine
DX: G47.33 Obstructive sleep apnea (adult) (pediatric) (principal); E03.9 Hypothyroidism, unspecified; E11.9 Type 2 diabetes mellitus without complications; E66.9 Obesity, unspecified; F51.04 Psychophysiologic insomnia; F43.10 Post-traumatic stress disorder, unspecified; I10 Essential (primary) hypertension; K21.9 Gastro-esophageal reflux disease without esophagitis; M79.7 Fibromyalgia; Z79.84 Long term (current) use of oral hypoglycemic drugs; Z79.890 Hormone replacement therapy; Z79.899 Other long term (current) drug therapy; Z90.89 Acquired absence of other organs; Z99.89 Dependence on other enabling machines and devices; Z88.2 Allergy status to sulfonamides; Z88.1 Allergy status to other antibiotic agents; Z88.6 Allergy status to analgesic agent
CPT/HCPCS: 99212

== ENCOUNTER → 2023-04-13 | Outpatient (CLI) | payer MEDICARE, BC ==
[2023-04-13 15:47] LABS: Blood Urea Nitrogen 16.4 mg/dL (9.0-27.0); Carbon Dioxide 25.6 mmol/L (21.6-31.8); Chloride 100 mmol/L (96-109); Glucose 170 mg/dL (70-110); Potassium 4.5 mmol/L (3.5-5.5); Sodium 139 mmol/L (135-145)
[2023-04-13 18:20] LABS: Microalbumin Creatinine Ratio <15 mg/g Cr (0-30); Urine Creatinine 81.6 mg/dL (28.0-217.0)
== END | disposition home or self-care (01) ==
LOC: LABWHC1 10:18
PROVIDERS: ATTEND Family Medicine
DX: E11.9 Type 2 diabetes mellitus without complications (principal)
CPT/HCPCS: 36415; 80048; 82043; 82570; 83036

== ENCOUNTER → 2023-05-31 | Outpatient (CLI) | payer MEDICARE, BC | END | disposition home or self-care (01) | LOC: LABWHC1 16:00 | PROVIDERS: ATTEND Internal Medicine | DX: U07.1 COVID-19 (principal) | CPT/HCPCS: 87636 ==

== ENCOUNTER → 2023-07-25 | Outpatient (CLI) | payer MEDICARE, BC ==
--- NOTE | 2023-07-25 15:23 | BD ---
EXAMINATION TYPE: Axial Bone Density DATE OF EXAM: 07/25/2023 CLINICAL HISTORY: 63 years old Female. ICD-10 CODE: Z78.0 POSTMENO R06.09 DYSPNEA Height: 66 Weight: 256 FRAX RISK QUESTIONS: Alcohol (3 or more units per day): no Family History (Parent hip fracture): yes Glucocorticoids (More than 3mos): no (Ex: prednisone, prednisolone, methylprednisolone, dexamethasone, and hydrocortisone). History of Fracture in Adulthood: yes Secondary Osteoporosis: 1. Type 1 Diabetes: no 2. Hyperthyroidism: no 3. Menopause before 45: no 4. Malnutrition: no 5. Chronic liver disease: yes Rheumatoid Arthritis: no Current Tobacco Use: no RISK FACTORS HISTORY OF: Surgery to Spine/Hip(right/left)/Wrist (right/left): no MEDICATIONS: Thyroid Medications: synthroid How Lon years EXAM MEASUREMENTS: Bone mineral densitometry was performed using the [employer]. Bone mineral density as measured about the Lumbar spine is: ----- L1-L4(G/cm2): 1.266 T Score Values are as follows: ----- L1: 0.6 ----- L2: 1.4 ----- L3: 0.3 ----- L4: 0.4 ----- L1-L4: 0.7 Z Score Values are as follows: ----- L1: 0.8 ----- L2: 1.6 ----- L3: 0.5 ----- L4: 0.6 ----- L1-L4: 0.9 Bone mineral density has: DECREASED -4.9 % since study of: 2018 Bone mineral density about the R hip (g/cm2): 1.061 Bone mineral density about the L hip (g/cm2): 1.046 T Score values are as follows: -----R Neck: -0.5 -----L Neck: -1.0 -----R Total: 0.4 -----L Total: 0.3 Z Score values are as follows: -----R Neck: -0.4 -----L Neck: 0.1 -----R Total: 0.6 -----L Total: 0.5 Bone mineral density has: decreased -7.4 % since study of: 2018 FRAX%s: The graph provided illustrates a 21.9% chance for a major osteoporotic fx and a 0.7% chance f or the hips probability for fx in 10 years time. IMPRESSION: Normal (Values between +1 and -1 indicate normal bone mass). Consider repeating this study in 5 year s or sooner if there is some new clinical indication. NOTE: T-SCORE=SD OF THE YOUNG ADULT MEAN.
--- NOTE | 2023-07-27 12:58 | MM ---
Reason for Exam: Screening (asymptomatic). Last mammogram was performed 5 year(s) and 8 month(s) ago. Patient History: Menarche at age 15. First Full-Term at age 27. Risk Values: Jessy 5 year model risk: 1.5%. NCI Lifetime model risk: 7.0%. Prior Study Comparison: 04/18/2012 Bilateral Screening Mammogram, [facility]. 01/03/2014 Bilateral Screening Mammogram, [facility]. 12/14/2017 Bilateral Screening Mammogram, [facility]. Tissue Density: There are scattered areas of fibroglandular density. Findings: Analyzed By CAD. There is no suspicious group of microcalcifications or new suspicious mass in either breast. Overall Assessment: Benign, BI-RAD 2 Management: Screening Mammogram of both breasts in 1 year. . Patient should continue monthly self-breast exams. A clinical breast exam by your physician is recommended on an annual basis. This exam should not preclude additional follow-up of suspicious palpable abnormalities. Note on Jessy scores and lifetime risk: 1. A Jessy score greater than 3% is considered moderate risk. If this is the case, consider specialist referral to assess eligibility for a risk reducing agent. 2. If overall lifetime risk for the development of breast cancer is 20% or higher, the patient may qualify for future screening with alternating mammogram and breast MRI. Electronically signed and approved by: Brigido Shelton M.D. Radiologis
== END | disposition home or self-care (01) ==
LOC: RADMAMWWP 13:47
PROVIDERS: ATTEND Family Medicine
DX: Z12.31 Encounter for screening mammogram for malignant neoplasm of breast (principal); M85.852 Other specified disorders of bone density and structure, left thigh; R06.09 Other forms of dyspnea; Z78.0 Asymptomatic menopausal state
CPT/HCPCS: 77063; 77067; 77080; 94060; 94726; 94729

== ENCOUNTER → 2023-08-23 | Outpatient (CLI) | payer MEDICARE, BC ==
[2023-08-23 19:35] LABS: C Reactive Protein <0.30 mg/dL (0.00-0.80); Creatine Kinase 83 U/L (26-186); Rheumatoid Factor, Qnt <15 IU/mL (0-15)
== END | disposition home or self-care (01) ==
LOC: LABWHC1 13:21
PROVIDERS: ATTEND Family Medicine
DX: M79.7 Fibromyalgia (principal); M13.0 Polyarthritis, unspecified
CPT/HCPCS: 36415; 82550; 85652; 86038; 86140; 86431

== ENCOUNTER → 2023-10-23 | Outpatient (CLI) | payer MEDICARE, BC ==
--- NOTE | 2023-10-23 14:13 | XR ---
EXAMINATION TYPE: XR chest 2V DATE OF EXAM: 10/23/2023 COMPARISON: NONE TECHNIQUE: PA and lateral views submitted. HISTORY: Shortness of breath FINDINGS: The lungs are clear and there is no pneumothorax, pleural effusion, or focal pneumonia. Heart size normal and no overt failure. Osseous structures demonstrate hypertrophic and degenerative changes of the spine. Limited inspiration with atherosclerotic change of the aorta. Mildly coarsened interstitiu m. IMPRESSION: 1. No acute process. Stable coarsened interstitium which could related to reduced inspiration rather than interstitial pneumonitis or bronchitis. Correlate clinically.
== END | disposition home or self-care (01) ==
LOC: RADXRMAIN 13:37
PROVIDERS: ATTEND Family Medicine
DX: R06.02 Shortness of breath (principal)
CPT/HCPCS: 71046

== ENCOUNTER → 2023-11-01 | Outpatient (CLI) | payer MEDICARE, BC ==
[2023-11-01 13:31] VITALS: BP 112/77; PULSE 76; RESP 16; TEMP 98.1
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
== END ==
LOC: 3 N SLEEP 13:09
PROVIDERS: ATTEND Internal Medicine
DX: G47.33 Obstructive sleep apnea (adult) (pediatric) (principal); G47.00 Insomnia, unspecified; F43.10 Post-traumatic stress disorder, unspecified; E03.9 Hypothyroidism, unspecified; I10 Essential (primary) hypertension; E11.9 Type 2 diabetes mellitus without complications; K21.9 Gastro-esophageal reflux disease without esophagitis; E66.9 Obesity, unspecified; Z98.890 Other specified postprocedural states; Z90.89 Acquired absence of other organs; Z99.89 Dependence on other enabling machines and devices; Z87.39 Personal history of other diseases of the musculoskeletal system and connective tissue; Z68.41 Body mass index [BMI] 40.0-44.9, adult; Z88.2 Allergy status to sulfonamides; Z88.1 Allergy status to other antibiotic agents; Z88.6 Allergy status to analgesic agent; Z79.84 Long term (current) use of oral hypoglycemic drugs; Z79.899 Other long term (current) drug therapy; Z79.85 Long-term (current) use of injectable non-insulin antidiabetic drugs; Z79.890 Hormone replacement therapy
CPT/HCPCS: 99212

== ENCOUNTER → 2023-11-03 | Outpatient (CLI) | payer MEDICARE, BC ==
[2023-11-03 13:14] LABS: African American GFR (CKD) >90 (>60 ml/min/1.73 sqM); Albumin 4.4 g/dL (3.5-5.0); Anion Gap 8 mmol/L; Blood Urea Nitrogen 25 mg/dL (7-17); Calcium 9.4 mg/dL (8.4-10.2); Carbon Dioxide 26 mmol/L (22-30); Chloride 103 mmol/L (98-107); Glucose 217 mg/dL (74-99); Non-African American GFR(CKD) 88 (>60 ml/min/1.73 sqM); Phosphorus 3.4 mg/dL (2.5-4.5); Potassium 4.2 mmol/L (3.5-5.1); Sodium 137 mmol/L (137-145)
--- NOTE | 2023-11-03 14:14 | CT ---
EXAMINATION TYPE: CT ChestAbdPelvis wo/w con DATE OF EXAM: 11/03/2023 COMPARISON: CT abdomen and pelvis dated 01/18/2022 HISTORY: abd pain CT DLP: 4286.1 mGycm Automated exposure control for dose reduction was used. CONTRAST: CT scan of the chest, abdomen and pelvis is performed with Oral Contrast and with IV Contrast, patien t injected with 100 mL of Isovue 300. FINDINGS: CT chest: There is no suspicious lung mass or nodule. There is no abnormal airspace/consolidative density or abnormal interstitial density. There is no pleural effusion, pleural thickening or pneumothorax. The great vessels and chest are normal there is no mediastinal, hilar or axillary adenopathy. No focal osseous lesions are seen. CT abdomen and pelvis: Gallbladder is normal without distention, pericholecystic fluid, wall thickening or gallstone. There is no biliary ductal dilatation. There is moderate fatty infiltration of the liver. There is stable moderate hepatomegaly. There is no focal mass or organomegaly involving the pancreas or spleen. There is no solid renal mass or hydronephrosis. There is a 70 mm nonobstructing left renal calcificat ion. There is no retroperitoneal adenopathy or hemorrhage in the caliber of the abdominal aorta is no rmal. The bowel loops are normal in caliber and there is no dilatation or obstruction. No inflammatory mayer ges identified in the bowel wall and mesentery. There is no free intracranial air or fluid. There is no pelvic mass or adenopathy. There is no free fluid within the pelvis. There is a pessary d evice. No focal osseous lesions are seen. Soft tissue the abdomen and pelvis are normal. IMPRESSION: 1. No significant abnormality seen within the chest. 2. Fatty liver. Stable hepatomegaly. 3. 7-8 mm nonobstructing left renal calcification. 4. Pessary device unchanged.
== END ==
LOC: RADCTMAIN 12:07
PROVIDERS: ATTEND Internal Medicine Gastroenterology
DX: K76.0 Fatty (change of) liver, not elsewhere classified (principal)
CPT/HCPCS: 80069; 71270; 74178; 36415; Q9967

== ENCOUNTER → 2024-04-05 | Day surgery (SDC) | payer MEDICARE, BC ==
[2024-04-03 14:53] VITALS: BMI 39.4
[~2024-04-05] MED LIST changes: -LACTATED RINGERS 1,000 ML IV ONE; -LACTATED RINGERS 1,000 ML IV SCH; +LIDOCAINE 1% INJ 10MG/ML (20 ML MDV) ONE; -LIDOCAINE 2% INJ 20 MG/ML (2 ML VIAL) ONE
[2024-04-05] MEDS: IV FLUID CONTINUATION 1,000 ML IV ONE ×2 (09:09→10:02)
[2024-04-05 09:12] VITALS: TEMP 96.9
[2024-04-05 09:24] LABS: Glucose,Whole Blood 128 mg/dL (70-110)
[2024-04-05] MEDS: LACTATED RINGERS 1,000 ML IV SCH (09:25)
--- NOTE | 2024-04-05 10:34 | P.PCN ---
Date of Procedure: 04/05/24 Procedure(s) Performed: BRIEF HISTORY: Patient is a 64-year-old pleasant white female scheduled for an elective colonoscopy as a part of evaluation of abdominal pain and change in bowel habits for the last several years duration. Symptoms are progressively getting worse. PROCEDURE PERFORMED: Colonoscopy with biopsy. PREOPERATIVE DIAGNOSIS: Chronic abdominal pain and change in bowel habits. IV sedation per Anesthesia. PROCEDURE: After informed consent was obtained, the patient, was brought into [facility] endoscopy unit. IV sedation was administered by Anesthesia under continuous monitoring. Digital rectal examination was normal. Initially the Olympus CF-160 flexible video colonoscope was then inserted in the rectum, gradually advanced into the right colon with moderate to severe difficulty. Careful examination was performed as the scope was gradually being withdrawn. Ileocecal valve was visual ized and appeared normal. The scope could not be advanced into the base of the cecum despite multiple attempts because of redundant colon. Ileocecal valve appeared normal. Mucosa of the prep was excellent. Mucosa of the ascending colon, transverse colon, descending colon, sigmoid colon, and rectum appeared normal. Sigmoid colon there was a 3 mm polyp that was removed by cold biopsy. Scattered sigmoid diverticulosis seen. Retroflexion was performed in the rectum and no lesions were seen. The patient tolerated the procedure well. IMPRESSION: 3 mm sigmoid colon polyp status post removal by cold biopsy Scattered sigmoid diverticulosis. RECOMMENDATIONS: Findings of this examination were discussed with the patient as well as her family. She was advised follow-up with the biopsy results. Follow-up in the office in 2 to 3 weeks.
[2024-04-05 10:40] VITALS: BP 92/56; PULSE 72; RESP 16
== END ==
LOC: ORWHC2ENDO 08:41
PROVIDERS: ATTEND Internal Medicine Gastroenterology
DX: K63.5 Polyp of colon (principal); K57.30 Diverticulosis of large intestine without perforation or abscess without bleeding; I10 Essential (primary) hypertension; E78.5 Hyperlipidemia, unspecified; I25.10 Atherosclerotic heart disease of native coronary artery without angina pectoris; E11.9 Type 2 diabetes mellitus without complications; E07.9 Disorder of thyroid, unspecified; G47.33 Obstructive sleep apnea (adult) (pediatric); M19.90 Unspecified osteoarthritis, unspecified site; F41.9 Anxiety disorder, unspecified; M41.9 Scoliosis, unspecified; F43.12 Post-traumatic stress disorder, chronic; M79.7 Fibromyalgia; G44.009 Cluster headache syndrome, unspecified, not intractable; K76.9 Liver disease, unspecified; Z88.8 Allergy status to other drugs, medicaments and biological substances; Z88.2 Allergy status to sulfonamides; Z88.9 Allergy status to unspecified drugs, medicaments and biological substances; Z88.6 Allergy status to analgesic agent; Z79.51 Long term (current) use of inhaled steroids; Z79.890 Hormone replacement therapy; Z79.84 Long term (current) use of oral hypoglycemic drugs; Z79.899 Other long term (current) drug therapy
CPT/HCPCS: 88305; 45380; J2003; J2704

== ENCOUNTER → 2024-05-02 | Outpatient (CLI) | payer MEDICARE, BC ==
[2024-05-02 12:03] VITALS: BP 140/83; PULSE 78; RESP 16; TEMP 98.1
--- NOTE | 2024-05-02 12:44 | P.PROGSL ---
Subjective DATE: 05/02/2024 FOLLOW UP VISIT. Patient with obstructive sleep apnea hypopnea syndrome return to sleep center for follow-up visit. Information from previous visit have been reviewed. Patient is using PAP equipment every night for the whole night, getting PAP supplies in time. The patient does not have significant problems with the mask, PAP unit and humidification. [place] sleepiness scale is 2, which is normal. I checked information from PAP unit. PAP unit pressure 611, average 10 cm H2O. Usage is 100% for more then 4 hours, average 9 hours per night. Leak is 8 l/m, which is in acceptable range. Apnea Hypopnea Index is 1.5, which is normal. MEDICATIONS have been reviewed, please see below. During physical exam: GENERAL: A pleasant patient without any distress. VITAL SIGNS: Please see below, weight is 232 lbs. HEENT: PERRLA, EOMI.low position of soft palate, Mallapati 3 . NECK: Supple. No JVD. LUNGS: Clear to percussion and to auscultation. Good air exchange. No wheezing or rhonchi. HEART: S1, S2 regular. ABDOMEN: Soft and nontender.[] EXTREMITIES: No clubbing or cyanosis. STUDENT SUCCESS ADVISOR: Awake, alert, and oriented x3. No focal deficit. Impressions: 1. Obstructive sleep apnea-hypopnea syndrome. Patient demonstrated great compliance with treatment, benefiting from treatment. 2. Obesity, BMI 38.6, patient lost about 24 pounds comparing with previous visit. 3. Hypertension. 4. Hypothyroidism. 5. Insomnia. 6. Diabetes mellitus. 7. History of fibromyalgia. 8. Acid reflux. 9. Status post tonsillectomy. 10. Status post sinus surgery. 11. PTSD. Plan: 1. Continue using PAP equipment every night for the whole night. 2. Sleep hygiene with regular time in bed for at least 7.5-8 hours 3. PAP unit should stay lower then position of the head. 4. Advised patient to remove all remaining water from humidifier canister daily and make it dry after each usage. Refill canister with fresh distilled water b efore each usage. 5. Watching and continue losing weight. 6. Precautions related to driving. No driving if feel any sleepiness. 7. I will maintain prescription for PAP supplies including mask, tube, filters. 8. Follow up visit in 8 months or earlier if patient has any problems. 9. Patient will continue Ambien 5 mg at bedtime as needed. Thank you very much for allowing me to participate in the management of your patient. Nikhil Rosenberg MD, PhD, FAASM. Diplomat of [place] [employer], Sleep Medicine Board by [place] [employer] [facility] [place] Objective - Vital Signs Vital Signs: Vital Signs Temp 98.1 F 05/02/24 11:46 Pulse 78 05/02/24 11:46 Resp 16 05/02/24 11:46 BP 140/83 05/02/24 11:46 Pulse Ox 95 05/02/24 11:46 FiO2 Intake & Output 05/01/24 05/02/24 05/02/24 18:59 06:59 18:59 Weight 105.233 kg Home Medications: Home Medications Medication Instructions Recorded Confirmed Type Fluticasone Propionate [Flonase] 1 - 2 spray EA NOSTRIL DAILY PRN 09/18/13 05/02/24 History Levothyroxine Sodium [Synthroid] 125 mcg PO MOTUWETHFRSA 09/18/13 05/02/24 History Dicyclomine [Bentyl] 10 mg PO TID PRN 07/19/16 04/05/24 History Cholecalciferol (Vitamin D3) 125 mcg PO DAILY 09/13/19 05/02/24 History [Vitamin D3] Montelukast [Singulair] 10 mg PO DAILY 09/13/19 05/02/24 History Ezetimibe [Zetia] 10 mg PO DAILY 07/16/20 05/02/24 History Melatonin [Melatonin Tr] 10 mg PO HS 07/16/20 05/02/24 History Metoprolol Succinate (ER) [Toprol 25 mg PO HS 07/16/20 05/02/24 History Xl] Atorvastatin [Lipitor] 40 mg PO DAILY 01/17/22 05/02/24 History Loratadine 10 mg PO DAILY 01/17/22 05/02/24 History metFORMIN HCL 1,000 mg PO BID 02/22/22 05/02/24 History Pantoprazole [Protonix] 40 mg PO DAILY 07/12/22 05/02/24 History Pregabalin 225 mg PO BID 07/12/22 05/02/24 History Zolpidem [Ambien] 5 mg PO HS #30 tab 12/01/22 05/02/24 Rx Albuterol Inhaler [Ventolin Hfa 1 - 2 puff INHALATION Q6H PRN 04/03/24 05/02/24 History Inhaler] Dicyclomine HCl 20 mg PO TID PRN 04/03/24 05/02/24 History HYDROcodone/APAP 5-325MG [[place] 1 tab PO Q6HR PRN 04/03/24 05/02/24 History 5-325] Multivit with Calcium,Iron,Min 1 each PO DAILY 04/03/24 05/02/24 History [Women's Multivitamin] Semaglutide [Ozempic] 1 mg SQ [place] 04/03/24 05/02/24 History Valsartan/Hydrochlorothiazide 1 each PO DAILY 04/03/24 05/02/24 History [Valsartan-Hctz 320-25 mg Tab] Venlafaxine HCl [Effexor XR] 225 mg PO DAILY 04/03/24 05/02/24 History busPIRone HCL 15 mg PO BID 04/03/24 05/02/24 History hydrOXYzine HCL [Hydroxyzine HCl] 25 mg PO HS 04/03/24 04/05/24 History
== END ==
LOC: 3 N SLEEP 11:27
PROVIDERS: ATTEND Internal Medicine
DX: G47.33 Obstructive sleep apnea (adult) (pediatric) (principal); E66.9 Obesity, unspecified; I10 Essential (primary) hypertension; E03.9 Hypothyroidism, unspecified; G47.00 Insomnia, unspecified; K21.9 Gastro-esophageal reflux disease without esophagitis; Z90.89 Acquired absence of other organs; Z68.38 Body mass index [BMI] 38.0-38.9, adult; Z98.890 Other specified postprocedural states; Z88.2 Allergy status to sulfonamides; Z88.1 Allergy status to other antibiotic agents; Z88.8 Allergy status to other drugs, medicaments and biological substances; Z88.6 Allergy status to analgesic agent; Z48.810 Encounter for surgical aftercare following surgery on the sense organs; Z99.89 Dependence on other enabling machines and devices
CPT/HCPCS: 99212

== ENCOUNTER → 2024-05-17 | Outpatient (CLI) | payer MEDICARE, BC ==
--- NOTE | 2024-05-17 19:04 | MR ---
EXAMINATION TYPE: MR abdomen wo/w con DATE OF EXAM: 05/17/2024 5:19 PM INDICATION: Patient age:Female; 64 years old; Reason for study: R10.9 ABD PAIN; PHH. COMPARISON: CT chest abdomen and pelvis 11/03/2023, ultrasound liver 03/02/2022, CT abdomen and pelvis 01/18/2022, 07/11/2019, MR abdomen 11/06/2019 TECHNIQUE: Multiplanar multi-sequence imaging was performed without and with IV contrast. The patien t was given 10.5 ccs of Gadobutrol intravenously and dynamic imaging was performed. Post IV contrast subtraction images were also submitted for review. FINDINGS: LOWER CHEST: No gross irregularity. ABDOMEN Liver: Noncirrhotic morphology. Enlarged liver measuring 21.3 cm in CC dimension. No focal lesion. Di ffuse drop out of signal on out of phase imaging consistent with steatosis. Gallbladder and Bile ducts: Small gallstones and T1 hyperintense biliary sludge. No wall thickening o r surrounding inflammatory changes. No biliary ductal dilatation. Pancreas: Unremarkable. Spleen: Unremarkable. Adrenal glands: Right adrenal gland is unremarkable. Stable left adrenal adenoma with drop out of sig nal on out of phase imaging measuring up to 1.4 cm. Kidneys: Unremarkable. Stomach and Bowel: No evidence of bowel obstruction. Stable masslike thickening along the lesser curv ature of the stomach at the GE junction measuring up to 3.7 cm. Demonstrates some heterogenous enhanc ement (series 1001, image 420). Peritoneum: No evidence of pneumoperitoneum, free fluid, or adenopathy. Vasculature: Unremarkable. No aortic aneurysm. Abdominal wall: Unremarkable. Musculoskeletal: The osseous structures appear intact. IMPRESSION: 1. Stable enhancing masslike thickening along the lesser curvature of the stomach at the GE junction dating back to 2019. Consider direct visualization as clinically indicated. 2. Stable benign left adrenal adenoma. 3. Hepatomegaly with diffuse steatosis. 4. Cholelithiasis and biliary sludge. [facility], , 05/17/2024 7:01 PM
== END | disposition home or self-care (01) ==
LOC: RADMRIMAIN 16:22
PROVIDERS: ATTEND Internal Medicine Gastroenterology
DX: D35.02 Benign neoplasm of left adrenal gland (principal); R16.0 Hepatomegaly, not elsewhere classified; K80.20 Calculus of gallbladder without cholecystitis without obstruction; R10.9 Unspecified abdominal pain; K76.0 Fatty (change of) liver, not elsewhere classified
CPT/HCPCS: 74183; A9585

== ENCOUNTER → 2024-05-22 | Outpatient (CLI) | payer MEDICARE, BC ==
--- NOTE | 2024-05-22 19:24 | MR ---
EXAMINATION TYPE: MR pelvis wo/w con DATE OF EXAM: 05/22/2024 2:54 PM COMPARISON: 05/17/2024. CLINICAL INDICATION: Female, 64 years old with history of R10.9 UNSPECIFIED ABDOMINAL PAIN; PHH, unsp ecified abdominal pain. TECHNIQUE: Triplane multisequence imaging was performed of the pelvis. IV Contrast: 10.5 mL Gadobutrol FINDINGS: Reproductive: Vagina: Pessary ring noted in the vagina Uterus: The uterus is anteverted in position. Uterus measures 5.3 x 3.3 x 4.5 cm. The endometrium and junctional zone are within normal limits. Few scattered probable fibroids noted which are low T2 sig nal. Ovaries: Follicular changes are noted to the ovaries. Right ovarian hemorrhagic/proteinaceous 13 mm c yst noted which is intrinsic high T1 signal. Bladder: Unremarkable. Bowel: Unremarkable as visualized. Peritoneum: No free fluid or adenopathy. Lymph nodes: No evidence of adenopathy. Vasculature: Unremarkable. Musculoskeletal: Bone marrow signal is within normal signal intensity. Abdominal wall/soft tissues: Fat-containing umbilical hernia. IMPRESSION: 1. No evidence of suspicious pelvic mass or acute process. 2. Right ovarian hemorrhagic/proteinaceous cyst. 3. Pessary ring in the vagina. 4. Few scattered fibroids. [facility], , 05/22/2024 7:21 PM
== END | disposition home or self-care (01) ==
LOC: RADMRIMAIN 13:43
PROVIDERS: ATTEND Internal Medicine Gastroenterology
DX: Z01.818 Encounter for other preprocedural examination (principal); N83.201 Unspecified ovarian cyst, right side; D25.9 Leiomyoma of uterus, unspecified
CPT/HCPCS: 72197; A9585

== ENCOUNTER → 2024-10-08 | Outpatient (CLI) | payer MEDICARE, BC ==
--- NOTE | 2024-10-08 12:41 | CT ---
EXAMINATION TYPE: CT chest wo con DATE OF EXAM: 10/08/2024 12:20 PM COMPARISON: 11/03/2023. CLINICAL INDICATION: Female, 64 years old with history of I10 HYPERTENSION J44.9 COPD J84.10 PULMONAR Y FIBRO; PHH, SOB TECHNIQUE: Multiple axial images were obtained through the chest. Sagittal and coronal reformats were created for review. MIP was performed on a separate workstation. Contrast used: mL of (None if empty) Oral contrast used: (None if empty) CT DLP: 549.6 mGycm, Automated exposure control for dose reduction was used. FINDINGS: LUNGS/ PLEURA: No focal consolidation, pneumothorax or pleural effusion. AIRWAY: Patent and unremarkable. HEART: Size within normal limits. Moderate coronary artery calcifications present. MEDIASTINUM: No gross evidence of adenopathy. VASCULATURE: No aortic aneurysm. MUSCULOSKELETAL: Moderate disc degeneration changes are present throughout the thoracolumbar spine se condary to osteophyte formation and facet joint arthropathy. SOFT TISSUES/LYMPH NODES: Unremarkable. LOWER NECK: No significant findings. UPPER ABDOMEN: No significant findings. IMPRESSION: 1. No evidence for acute process. 2. Moderate coronary artery atherosclerosis. 3. Nonobstructing left renal calculus. [facility], , 10/08/2024 12:39 PM
== END | disposition home or self-care (01) ==
LOC: RADCTMAIN 11:53
PROVIDERS: ATTEND Family Medicine
DX: N20.0 Calculus of kidney (principal); I10 Essential (primary) hypertension; J44.9 Chronic obstructive pulmonary disease, unspecified; J84.10 Pulmonary fibrosis, unspecified; I25.10 Atherosclerotic heart disease of native coronary artery without angina pectoris
CPT/HCPCS: 71250